=== PATIENT | male | born 1945 | race Caucasian/White ===

== ENCOUNTER → 2017-03-01 | Outpatient (CLI) | payer OTHER ==
[~2017-03-01] MED LIST: ASPCH81X PO; CITA10TA4 PO; DILT-119 PO; DVN/160 PO; FINA5TAB PO; PRAV80TA2 PO; TERA5CAP PO
[2017-03-01 17:39] LABS: BASO % 0.4 %; BASO ABS # 0.03 K/uL (0-0.2); COMPLETE YES; EOS % 1.9 %; HEMATOCRIT 43.6 % (42-52); IG% 0.2 %; LYMPH % 26.2 %; LYMPH ABS # 2.12 K/uL (1.2-3.4); MEAN CELL VOLUME 88.8 fL (80-100); MEAN CORPUSCULAR HEMOGLOBIN 30.5 pg (25-34); MEAN CORPUSCULAR HGB CONC 34.4 g/dl (32-36); MEAN PLATELET VOLUME 11.1 fL (7.4-10.4); MONO % 7.7 %; NEUT % 63.6 %; PLATELET COUNT 217 K/uL (130-400); RED BLOOD COUNT 4.91 M/uL (4.7-6.1)
[2017-03-01 18:27] LABS: ALT/SGPT 54 U/L (12-78); AST/SGOT 53 U/L (15-37); BLOOD UREA NITROGEN 23 mg/dl (7-18); BUN/CREATININE RATIO 16.2 (10-20); CALCIUM 8.5 mg/dl (8.5-10.1); CARBON DIOXIDE 28 mmol/L (21-32); CHLORIDE 108 mmol/L (98-107); CHOLESTEROL 145 mg/dl (0-200); GLUCOSE 73 mg/dl (70-99); POTASSIUM 3.8 mmol/L (3.5-5.1); SODIUM 143 mmol/L (136-145)
[2017-03-01 18:39] LABS: ALB/GLOB RATIO 1.4 (0.9-2); ALKALINE PHOSPHATASE 61 U/L (45-117); CHOLESTEROL/HDL RATIO 3.2; HDL CHOLESTEROL 45 mg/dl; LDL CHOLESTEROL CALCULATED 75 mg/dl; TRIGLYCERIDES 124 mg/dl (0-150); VERY LOW DENSITY LIPOPROT CALC 25 mg/dl
[2017-03-02 08:13] LABS: ESTIMATED AVERAGE GLUCOSE 114 mg/dl; HA1C FLAG Normal (Normal)
--- NOTE | 2017-03-17 10:42 | CODING QUERY MEDICAL NECESSITY ---
CQSUPPORTING DIAGNOSIS NEEDED A supporting diagnosis is required for the test/procedure performed on this patient in order for us to be reimbursed by the patient's insurance. Please provide a supporting diagnosis for the following test/procedure listed below next to the test name along with your signature. *If there is no additional diagnosis for this patient that would support the following test/procedure please document that below next to the test/procedure. Test(s)/Procedure(s) that require a supporting diagnosis: EL[place] 03/01/17 GLYCATED HEMOGLOBIN TEST Provider Signature: Date: Thank you Porsha Garcia Health Information Management Once completed, please kindly fax back to [phone] For questions please call [phone]
== END | disposition home or self-care (01) ==
LOC: C.LABBFT 12:16
PROVIDERS: ATTEND Internal Medicine
DX: Q25.3 Supravalvular aortic stenosis (principal); E78.5 Hyperlipidemia, unspecified; R73.03 Prediabetes; R97.20 Elevated prostate specific antigen [PSA]; R73.09 Other abnormal glucose

== ENCOUNTER 2018-01-28 07:34 | Inpatient (IN) | payer OTHER ==
[~2018-01-28] VITALS: Ht 172.7 cm; Wt 80.0 kg
[2018-01-28] MEDS ORDERED: SODIUM CHLORIDE 0.9% 1000ML 1,000 ML IV STA (07:59)
[2018-01-28] MEDS ORDERED: MoRPHine SULFATE 10 MG/ML CARP/VIAL IV STA (07:59)
[2018-01-28] MEDS ORDERED: ONDANSETRON INJ 2 MG/ML 2 ML VIAL IV STA ×2 (07:59→08:57)
--- NOTE | 2018-01-28 08:04 | EMERGENCY ROOM VISIT NOTE ---
History First contact with patient: 07:50 Chief Complaint: FLANK PAIN Stated Complaint: SEVERE L LOWER BACK PAIN,NAUSEA History of Present Illness The patient is a 72 year old male who presents to the Emergency Room with complaints of a suspected kidney stone. The patient reports that approximately 4 hours ago, he had sudden onset of left flank pain with radiation into the abdomen. He states the pain is sharp and he rates the discomfort a 7/10. He reports associated nausea but has not vomited. He has urinary urgency and a feeling of incomplete emptying. Patient has required lithotripsy and stone removal in the past, but has not had a kidney stone in several years. He does not have a local urologist. He denies chest pain, shortness of breath or changes in bowel movements. Review of Systems A complete 10 point review of systems was reviewed with the patient with pertinent positives and negatives as per history of present illness. All else were negative. Past Medical/Surgical History Medical Problems: (1) Hypertension (2) Urinary tract infection Social History Smoking Status: Never Smoker Alcohol Use: none Marital Status: Housing Status: lives alone Current/Historical Medications Scheduled Aspirin (Aspirin Chewable), 81 MG PO QAM Citalopram Hydrobromide (Citalopram Hydrobromide), 1 TAB PO QPM Diltiazem Hcl Ext Rel (Tiazac), 360 MG PO QAM Finasteride (Proscar), 5 MG PO HS Pravastatin Sodium (Pravastatin Sodium), 1 TAB PO HS Terazosin (Hytrin), 5 MG PO QAM Valsartan/Hctz (Diovan Hct 160MG/12.5MG), 1 TAB PO DAILY Physical Exam Vital Signs Date Time Temp Pulse Resp B/P (MAP) Pulse Ox O2 Delivery O2 Flow Rate FiO2 01/28/18 09:41 54 20 130/76 96 01/28/18 08:17 68 20 163/85 97 Room Air 01/28/18 08:06 72 20 187/87 95 Room Air 01/28/18 07:40 36.4 63 18 103/69 99 Room Air Physical Exam VITALS: Vitals are noted on the nurse's note and reviewed by myself. Vital signs stable. GENERAL: This is a 72-year-old male, in no acute distress, nondiaphoretic, well- developed well-nourished. SKIN: The skin was without rashes. EARS: External auditory canals clear, tympanic membranes pearly avendano without erythema or effusion bilaterally. EYES: Pupils equal round and reactive to light and accommodation. MOUTH: Mucous membranes moist. . HEART: Regular rate and rhythm without murmurs gallops or rubs. LUNGS: Clear to auscultation bilaterally without wheezes, rales or rhonchi. ABDOMEN: Positive bowel sounds x 4. Soft, mild tenderness in the left lower quadrant. No guarding or rebound tenderness. MUSCULOSKELETAL: Left CVA tenderness. NEURO: Patient was alert and oriented to person place and time. Medical Decision & Procedures ER Provider Diagnostic Interpretation: CT SCAN OF THE ABDOMEN AND PELVIS WITHOUT IV CONTRAST FINDINGS: Lung bases: The heart is enlarged and without pericardial effusion. There are coronary artery calcifications. A small hiatal hernia is noted. The lung bases are clear. Liver: The unenhanced liver is normal in size, contour, and attenuation. There is no intrahepatic biliary ductal dilatation. Gallbladder: Small calcified gallstones are identified. There is no CT evidence of acute cholecystitis. Spleen: Normal in size and attenuation. Pancreas: The unenhanced pancreas is mildly atrophic and grossly unremarkable. Adrenal glands: Unremarkable. Kidneys: The unenhanced kidneys demonstrate cortical atrophy. There is a 5 mm obstructing calculus at the left vesicoureteral junction seen on image #363. This causes moderate left hydroureteronephrosis. There is associated left-sided perinephric stranding. There are 2 additional nonobstructing left renal calculi measuring up to 6 mm. A 2 mm nonobstructing right renal calculus is identified. No right-sided hydronephrosis is seen. A 12.5 cm cyst arises exophytically from the lower pole of the right kidney. Thin calcifications are noted in the cyst wall. Abdominal vasculature: The abdominal aorta is normal in course and caliber noting mild atherosclerotic calcification. Bowel: There is moderate colonic diverticulosis without CT evidence of acute diverticulitis. No bowel obstruction is seen. The appendix is well-visualized and normal. Peritoneum: There is no intraperitoneal free air or abdominal ascites. Lymphadenopathy: None. Pelvic viscera: The prostate gland is enlarged and heterogeneous, measuring 5.0 cm in transverse diameter. There is median lobe hypertrophy. There is circumferential bladder wall thickening and trabeculation consistent with chronic outlet obstruction. Small bladder diverticula are identified. There is trace free fluid in the pelvis. Skeletal structures: The skeletal structures are osteopenic. There is mild lumbosacral spondylosis. No lytic or blastic lesions are seen. IMPRESSION: 1. There is a 5 mm obstructing calculus at the left vesicoureteral junction. This causes moderate left hydroureteronephrosis. 2. Additional bilateral nonobstructing renal calculi as above. 3. Moderate colonic diverticulosis without CT evidence of acute diverticulitis. 4. Cardiomegaly and small hiatal hernia. 5. A 12.5 cm cyst arises from the lower pole of the right kidney. 6. Prostatomegaly with evidence of chronic bladder outlet obstruction. 7. Trace free fluid in the pelvis is likely on a reactive basis. 8. Additional findings as above. Laboratory Results 01/28/18 07:55 Red Blood Count 5.22, Mean Corpuscular Volume 89.1, Mean Corpuscular Hemoglobin 31.8, Mean Corpuscular Hemoglobin Concent 35.7, Mean Platelet Volume 10.2, Neutrophils (%) (Auto) 66.9, Lymphocytes (%) (Auto) 24.7, Monocytes (%) (Auto) 6.4, Eosinophils (%) (Auto) 1.5, Basophils (%) (Auto) 0.3, Neutrophils # (Auto) 6.54, Lymphocytes # (Auto) 2.42, Monocytes # (Auto) 0.63, Eosinophils # (Auto) 0.15, Basophils # (Auto) 0.03 01/28/18 07:55 Test 01/28/18 07:55 White Blood Count 9.79 K/uL (4.8-10.8) Red Blood Count 5.22 M/uL (4.7-6.1) Hemoglobin 16.6 g/dL (14.0-18.0) Hematocrit 46.5 % (42-52) Mean Corpuscular Volume 89.1 fL (80-100) Mean Corpuscular Hemoglobin 31.8 pg (25-34) Mean Corpuscular Hemoglobin Concent 35.7 g/dl (32-36) Platelet Count 246 K/uL (130-400) Mean Platelet Volume 10.2 fL (7.4-10.4) Neutrophils (%) (Auto) 66.9 % Lymphocytes (%) (Auto) 24.7 % Monocytes (%) (Auto) 6.4 % Eosinophils (%) (Auto) 1.5 % Basophils (%) (Auto) 0.3 % Neutrophils # (Auto) 6.54 K/uL (1.4-6.5) Lymphocytes # (Auto) 2.42 K/uL (1.2-3.4) Monocytes # (Auto) 0.63 K/uL (0.11-0.59) Eosinophils # (Auto) 0.15 K/uL (0-0.5) Basophils # (Auto) 0.03 K/uL (0-0.2) RDW Standard Deviation 44.0 fL (36.4-46.3) RDW Coefficient of Variation 13.5 % (11.5-14.5) Immature Granulocyte % (Auto) 0.2 % Immature Granulocyte # (Auto) 0.02 K/uL (0.00-0.02) Prothrombin Time 10.6 SECONDS (9.0-12.0) Prothromb Time International Ratio 1.0 (0.9-1.1) Activated Partial Thromboplast Time 24.0 SECONDS (21.0-31.0) Partial Thromboplastin Ratio 0.9 Urine Color YELLOW Urine Appearance CLOUDY (CLEAR) Urine pH 5.0 (4.5-7.5) Urine Specific [place] 1.019 (1.000-1.030) Urine Protein NEG (NEG) Urine Glucose (UA) NEG (NEG) Urine Ketones NEG (NEG) Urine Occult Blood 2+ (NEG) Urine Nitrite POS (NEG) Urine Bilirubin NEG (NEG) Urine Urobilinogen NEG (NEG) Urine Leukocyte Esterase MODERATE (NEG) Urine WBC (Auto) >30 /hpf (0-5) Urine RBC (Auto) 10-30 /hpf (0-4) Urine Hyaline Casts (Auto) 5-10 /lpf (0-5) Urine Epithelial Cells (Auto) 0-5 /lpf (0-5) Urine Bacteria (Auto) 2+ (NEG) Anion Gap 5.0 mmol/L (3-11) Est Creatinine Clear Calc Drug Dose 39.7 ml/min Estimated GFR () 47.7 Estimated GFR (Non- 41.1 BUN/Creatinine Ratio 11.0 (10-20) Calcium Level 8.9 mg/dl (8.5-10.1) Total Bilirubin 0.4 mg/dl (0.2-1) Aspartate Amino Transf (AST/SGOT) 27 U/L (15-37) Alanine Aminotransferase (ALT/SGPT) 32 U/L (12-78) Alkaline Phosphatase 70 U/L (45-117) Total Protein 7.7 gm/dl (6.4-8.2) Albumin 4.4 gm/dl (3.4-5.0) Globulin 3.3 gm/dl (2.5-4.0) Albumin/Globulin Ratio 1.3 (0.9-2) Medications Administered Medications (Trade) Dose Ordered Sig/Chani Route Start Time Stop Time Status Last Admin Dose Admin Morphine Sulfate (MoRPHine SULFATE INJ) 8 mg NOW STAT IV 01/28/18 07:59 01/28/18 08:00 DC 01/28/18 08:07 8 MG Ondansetron HCl (Zofran Inj) 4 mg NOW STAT IV 01/28/18 07:59 01/28/18 08:00 DC 01/28/18 08:04 4 MG Sodium Chloride 1,000 ml @ 999 mls/hr Q1H1M STAT IV 01/28/18 07:59 01/28/18 08:59 DC 01/28/18 07:59 999 MLS/HR Ondansetron HCl (Zofran Inj) 4 mg NOW STAT IV 01/28/18 08:57 01/28/18 08:58 DC 01/28/18 09:42 4 MG Ceftriaxone Sodium (Rocephin Inj) 1 gm NOW STAT IV 01/28/18 09:10 01/28/18 09:11 DC 01/28/18 09:43 1 GM Sodium Chloride 1,000 ml @ 100 mls/hr Q10H IV 01/28/18 10:45 01/29/18 16:44 01/28/18 12:31 100 MLS/HR ED Course The patient was evaluated as above. Labs were drawn and IV access was obtained. Patient was medicated with 8 mg morphine IV, 4 mg Zofran IV and 1 L normal saline solution. CT of the abdomen/pelvis was performed and read by radiology as above. Patient was reevaluated and findings were discussed. He is agreeable to admission. Patient's case was discussed with Dr. Loving. He does not feel the patient will require any urgent intervention. Case was discussed with the [facility] hospitalist, Dr. Urias. They agreed to evaluate the patient for admission. Medical Decision Differential diagnosis includes kidney stone, herpes zoster, diverticulitis, musculoskeletal pain, among others. The patient is a 72-year-old male who presents today complaining of left flank pain. Labs revealed no leukocytosis or anemia. Creatinine slightly elevated from patient's baseline. CT does show a 5 mm stone in the left UVJ. Urinalysis was suggestive of infection, with positive nitrites, leukocyte esterase, greater than 30 white cells and 2+ bacteria. Culture was obtained. Patient was given Rocephin. Due to patient's coexisting UTI and kidney stone, I do feel he warrants admission for IV antibiotics and to ensure that symptoms do not worsen. Patient was agreeable to this. He was admitted to the [facility] service. The patient was independently evaluated by Dr. Coleman, ED attending physician, who agreed with my assessment and treatment plan. Medication Reconcilliation Current Medication List: was personally reviewed by me Blood Pressure Screening Patient's blood pressure: Normal blood pressure Impression Primary Impression: Kidney stone Additional Impression: Urinary tract infection Departure Information Referrals Ryne Block M.D. (PCP) Patient Instructions My [facility] Problem Qualifiers
[2018-01-28 08:27] LABS: BASO % 0.3 %; BASO ABS # 0.03 K/uL (0-0.2); EOS % 1.5 %; EOS ABS # 0.15 K/uL (0-0.5); HEMATOCRIT 46.5 % (42-52); HEMOGLOBIN 16.6 g/dL (14.0-18.0); IG# 0.02 K/uL (0.00-0.02); LYMPH % 24.7 %; LYMPH ABS # 2.42 K/uL (1.2-3.4); MEAN CELL VOLUME 89.1 fL (80-100); MEAN CORPUSCULAR HEMOGLOBIN 31.8 pg (25-34); MEAN CORPUSCULAR HGB CONC 35.7 g/dl (32-36); MEAN PLATELET VOLUME 10.2 fL (7.4-10.4); MONO % 6.4 %; MONO ABS # 0.63 K/uL (0.11-0.59); NEUT % 66.9 %; NEUT ABS # 6.54 K/uL (1.4-6.5); PLATELET COUNT 246 K/uL (130-400); RED CELL DISTRIBUTION WIDTH CV 13.5 % (11.5-14.5); WHITE BLOOD COUNT 9.79 K/uL (4.8-10.8)
[2018-01-28 08:44] LABS: ALBUMIN 4.4 gm/dl (3.4-5.0); CALCIUM 8.9 mg/dl (8.5-10.1); CREATININE 1.65 mg/dl (0.60-1.40); POTASSIUM 3.8 mmol/L (3.5-5.1)
[2018-01-28 08:46] LABS: TOTAL PROTEIN 7.7 gm/dl (6.4-8.2)
[2018-01-28] MEDS ORDERED: VALS160T58 PO (08:49)
--- NOTE | 2018-01-28 09:07 | DIAGNOSTIC IMAGING REPORT ---
CT SCAN OF THE ABDOMEN AND PELVIS WITHOUT IV CONTRAST CLINICAL HISTORY: Left flank pain. COMPARISON STUDY: No priors. TECHNIQUE: CT scan of the abdomen and pelvis is performed from the lung bases to the proximal femora. Images are reviewed in the axial, sagittal, and coronal planes. IV contrast was not administered for this examination as per the referring clinician. A dose lowering technique was utilized adhering to the principles of ALARA. CT DOSE: 1002.76 mGy.cm FINDINGS: Lung bases: The heart is enlarged and without pericardial effusion. There are coronary artery calcifications. A small hiatal hernia is noted. The lung bases are clear. Liver: The unenhanced liver is normal in size, contour, and attenuation. There is no intrahepatic biliary ductal dilatation. Gallbladder: Small calcified gallstones are identified. There is no CT evidence of acute cholecystitis. Spleen: Normal in size and attenuation. Pancreas: The unenhanced pancreas is mildly atrophic and grossly unremarkable. Adrenal glands: Unremarkable. Kidneys: The unenhanced kidneys demonstrate cortical atrophy. There is a 5 mm obstructing calculus at the left vesicoureteral junction seen on image #363. This causes moderate left hydroureteronephrosis. There is associated left-sided perinephric stranding. There are 2 additional nonobstructing left renal calculi measuring up to 6 mm. A 2 mm nonobstructing right renal calculus is identified. No right-sided hydronephrosis is seen. A 12.5 cm cyst arises exophytically from the lower pole of the right kidney. Thin calcifications are noted in the cyst wall. Abdominal vasculature: The abdominal aorta is normal in course and caliber noting mild atherosclerotic calcification. Bowel: There is moderate colonic diverticulosis without CT evidence of acute diverticulitis. No bowel obstruction is seen. The appendix is well-visualized and normal. Peritoneum: There is no intraperitoneal free air or abdominal ascites. Lymphadenopathy: None. Pelvic viscera: The prostate gland is enlarged and heterogeneous, measuring 5.0 cm in transverse diameter. There is median lobe hypertrophy. There is circumferential bladder wall thickening and trabeculation consistent with chronic outlet obstruction. Small bladder diverticula are identified. There is trace free fluid in the pelvis. Skeletal structures: The skeletal structures are osteopenic. There is mild lumbosacral spondylosis. No lytic or blastic lesions are seen. IMPRESSION: 1. There is a 5 mm obstructing calculus at the left vesicoureteral junction. This causes moderate left hydroureteronephrosis. 2. Additional bilateral nonobstructing renal calculi as above. 3. Moderate colonic diverticulosis without CT evidence of acute diverticulitis. 4. Cardiomegaly and small hiatal hernia. 5. A 12.5 cm cyst arises from the lower pole of the right kidney. 6. Prostatomegaly with evidence of chronic bladder outlet obstruction. 7. Trace free fluid in the pelvis is likely on a reactive basis. 8. Additional findings as above. Electronically signed by: Vargas Frances M.D. 01/28/2018 9:06 AM Dictated Date/Time: 01/28/2018 8:58 AM
[2018-01-28] MEDS ORDERED: CEFTRIAXONE SOD INJ 1 GM ADDVIAL IV STA (09:10)
[2018-01-28] MEDS ORDERED: ONDANSETRON INJ 2 MG/ML 2 ML VIAL IV PRN (10:45)
[2018-01-28] MEDS ORDERED: ACETAMINOPHEN 325 MG TAB PO PRN (10:45)
[2018-01-28 11:00] VITALS: O2SAT 97; Ht 172.7 cm; Wt 80.0 kg
--- NOTE | 2018-01-28 11:07 | History and Physical ---
History & Physical Date & Time of Service: Jan 28, 2018 at 10:58 Chief Complaint: Severe L Lower Back Pain,Nausea Primary Care Physician: Ryne Block M.D. History of Present Illness Source: patient Mr. Haim Cannon is a 72-year-old gentleman who presents to [facility] for further evaluation. Patient has a significant history of nephrolithiasis requiring multiple cystoscopies, lithotripsies and even required stent placements. Past medical history also includes history of hypertension and hyperlipidemia. Mr. Cannon was in his usual state of health until 03:00 when he developed left flank pain of gradual onset. Initially he felt a pressure sensation but eventually progressed to a sharp sensation with a 10 out of 10 severity. Pain now radiates along the left groin. Associated symptoms include intermittent nausea and vomiting. In the emergency department patient was started on intravenous hydration with normal saline and was given intravenous morphine which has helped with pain control. He remains afebrile and hemodynamically stable. Urinalysis findings are indicative of infectious process. One dose of ceftriaxone was given emergency department. No other symptoms and patient denies fevers, chills. No chest pain or shortness of breath. Otherwise rest of ROS is negative. Past Medical/Surgical History Medical Problems: (1) Hypertension (2) Urinary tract infection Family History noncontributory Social History Smoking Status: Never Smoker Marital Status: Allergies Coded Allergies: Amlodipine (Verified Allergy, Unknown, FACIAL DISCOMFORT/SWELLING, 01/28/18 ) Atorvastatin (Verified Allergy, Unknown, MUSCLE TIGHTENING, 01/28/18) Home Medications Scheduled Aspirin (Aspirin Chewable), 81 MG PO QAM Citalopram Hydrobromide (Citalopram Hydrobromide), 1 TAB PO QPM Diltiazem Hcl Ext Rel (Tiazac), 360 MG PO QAM Finasteride (Proscar), 5 MG PO HS Pravastatin Sodium (Pravastatin Sodium), 1 TAB PO HS Terazosin (Hytrin), 5 MG PO QAM Valsartan/Hctz (Diovan Hct 160MG/12.5MG), 1 TAB PO DAILY Review of Systems Constitutional: No fever, No chills, No sweats, No weight loss, No weakness, No fatigue, No problem reported Eyes: No worsening of vision, No eye pain, No redness, No discharge, No diplopia, No problem reported ENT: No hearing loss, No unusual epistaxis, No nasal symptoms, No sore throat, No tinnitus, No dental problems, No trouble swallowing, No problem reported Respiratory: No cough, No sputum, No wheezing, No shortness of breath, No dyspnea on exertion, No dyspnea at rest, No hemoptysis, No problem reported Cardiovascular: No chest pain, No orthopnea, No PND, No edema, No claudication , No palpitations, No problem reported Abdomen: + pain (left flank pain), + nausea, + vomiting Genitourinary - Male: + dysuria, + urinary urgency, No hematuria, No urinary frequency, No urinary hesitancy, No urinary retention, No urinary incontinence, No penile discharge, No lesions, No impotence, No problem reported Neurologic: No memory loss, No paralysis, No weakness, No numbness/tingling, No vertigo, No balance problems, No problem reported Psychiatric: No depression symptoms, No anhedonism, No anxiety, No insomnia, No substance abuse, No problem reported Endocrine: No fatigue, No excessive thirst, No excessive urination, No problem reported Hematologic / Lymphatic: No abnormal bleeding/bruising, No clotting problems, No swollen lymph nodes, No night sweats, No problem reported Integumentary: No rash, No itch, No new/changing skin lesions, No color change , No bleeding, No problem reported Physical Exam Vital Signs Date Time Temp Pulse Resp B/P (MAP) Pulse Ox O2 Delivery O2 Flow Rate FiO2 01/28/18 09:41 54 20 130/76 96 01/28/18 08:17 68 20 163/85 97 Room Air 01/28/18 08:06 72 20 187/87 95 Room Air 01/28/18 07:40 36.4 63 18 103/69 99 Room Air General Appearance: WD/WN, no apparent distress Head: normocephalic, atraumatic Eyes: normal inspection, PERRL, EOMI ENT: normal ENT inspection Neck: supple, no adenopathy, no JVD, trachea midline Respiratory/Chest: chest non-tender, lungs clear, normal breath sounds, no respiratory distress, no accessory muscle use Cardiovascular: regular rate, rhythm, no edema, no gallop, no JVD, no murmur, normal peripheral pulses Abdomen/GI: normal bowel sounds, + tenderness (mild tenderness to palpatin atLLQ and suprapubic region) Back: + left CVA tenderness Extremities/Musculoskelatal: normal inspection, no calf tenderness, no pedal edema, normal range of motion Neurologic/Psych: shirt ironer II-XII nml as tested, oriented x 3 Diagnostics Laboratory Results Results Past 24 Hours Test 01/28/18 07:55 Range/Units White Blood Count 9.79 4.8-10.8 K/uL Red Blood Count 5.22 4.7-6.1 M/uL Hemoglobin 16.6 14.0-18.0 g/dL Hematocrit 46.5 42-52 % Mean Corpuscular Volume 89.1 80-100 fL Mean Corpuscular Hemoglobin 31.8 25-34 pg Mean Corpuscular Hemoglobin Concent 35.7 32-36 g/dl Platelet Count 246 130-400 K/uL Mean Platelet Volume 10.2 7.4-10.4 fL Neutrophils (%) (Auto) 66.9 % Lymphocytes (%) (Auto) 24.7 % Monocytes (%) (Auto) 6.4 % Eosinophils (%) (Auto) 1.5 % Basophils (%) (Auto) 0.3 % Neutrophils # (Auto) 6.54 1.4-6.5 K/uL Lymphocytes # (Auto) 2.42 1.2-3.4 K/uL Monocytes # (Auto) 0.63 0.11-0.59 K/uL Eosinophils # (Auto) 0.15 0-0.5 K/uL Basophils # (Auto) 0.03 0-0.2 K/uL RDW Standard Deviation 44.0 36.4-46.3 fL RDW Coefficient of Variation 13.5 11.5-14.5 % Immature Granulocyte % (Auto) 0.2 % Immature Granulocyte # (Auto) 0.02 0.00-0.02 K/uL Urine Color YELLOW Urine Appearance CLOUDY CLEAR Urine pH 5.0 4.5-7.5 Urine Specific [place] 1.019 1.000-1.030 Urine Protein NEG NEG Urine Glucose (UA) NEG NEG Urine Ketones NEG NEG Urine Occult Blood 2+ NEG Urine Nitrite POS NEG Urine Bilirubin NEG NEG Urine Urobilinogen NEG NEG Urine Leukocyte Esterase MODERATE NEG Urine WBC (Auto) >30 0-5 /hpf Urine RBC (Auto) 10-30 0-4 /hpf Urine Hyaline Casts (Auto) 5-10 0-5 /lpf Urine Epithelial Cells (Auto) 0-5 0-5 /lpf Urine Bacteria (Auto) 2+ NEG Sodium Level 141 136-145 mmol/L Potassium Level 3.8 3.5-5.1 mmol/L Chloride Level 106 98-107 mmol/L Carbon Dioxide Level 30 21-32 mmol/L Anion Gap 5.0 3-11 mmol/L Blood Urea Nitrogen 18 7-18 mg/dl Creatinine 1.65 0.60-1.40 mg/dl Est Creatinine Clear Calc Drug Dose 39.7 ml/min Estimated GFR () 47.7 Estimated GFR (Non- 41.1 BUN/Creatinine Ratio 11.0 10-20 Random Glucose 137 70-99 mg/dl Calcium Level 8.9 8.5-10.1 mg/dl Total Bilirubin 0.4 0.2-1 mg/dl Aspartate Amino Transf (AST/SGOT) 27 15-37 U/L Alanine Aminotransferase (ALT/SGPT) 32 12-78 U/L Alkaline Phosphatase 70 45-117 U/L Total Protein 7.7 6.4-8.2 gm/dl Albumin 4.4 3.4-5.0 gm/dl Globulin 3.3 2.5-4.0 gm/dl Albumin/Globulin Ratio 1.3 0.9-2 Microbiology Results 01/28/18 Urine Culture, Received Pending Diagnostic Radiology CT A/P w.o contrast IMPRESSION 1. There is a 5 mm obstructing calculus at the left vesicoureteral junction. This causes moderate left hydroureteronephrosis. 2. Additional bilateral nonobstructing renal calculi as above. 3. Moderate colonic diverticulosis without CT evidence of acute diverticulitis. 4. Cardiomegaly and small hiatal hernia. 5. A 12.5 cm cyst arises from the lower pole of the right kidney. 6. Prostatomegaly with evidence of chronic bladder outlet obstruction. 7. Trace free fluid in the pelvis is likely on a reactive basis. Impression Assessment and Plan R.T.P 72/M admitted for complicated urinary tract infection. Patient has a known history of Nephrolithiasis requiring urologic interventions. In the past he has needed multiple cystoscopies, lithotripsy and stent placement. Urine analysis obtained emergency department is suggestive of infection. There is evidence of occult blood, nitrates, moderate leukoesterase and bacteria. He is currently on intravenous antibiotics and will continue on ceftriaxone 1 g daily. Urology service will be consulted and will appreciate any further recommendations. In the meantime pain is well controlled with intravenous morphine. Afebrile hemodynamically stable. 1) Urinary Tract Infection, complicated - intravenous hydration: NS 100cc/hr for 3 liters - intravenous Abx: ceftriaxone 1gm IV q24H - resume finasteride and terazosin - UCx obtained in ED; will f/u with results and S/S - Urology consultation; will appreciate recommendations - intravenous morphine for pain management - ondasetron PRN for nausea - acetaminophen 650mg PO q6H PRN for temperature 100.4 F or greater 2) Hypertension - controlled - resume valsartan/HCTZ and diltiazem 3) Hyperlipidemia - stable, no active issues - resume pravastatin Admit: Med/Surg Diet: Heart Healthy Activity: ad stefan DVT ppx: SQ heparin NM/Stroke ppx: ASA Precautions: Standard Code Status: FULL Resuscitation Status VTE Prophylaxis Will order VTE Prophylaxis: Yes
[2018-01-28] MEDS ORDERED: MoRPHine SULFATE 4 MG/ML 1 ML CARP\\VIAL IV PRN (11:30)
[2018-01-28] MEDS ORDERED: MoRPHine SULFATE 2 MG/ML CARP IV PRN ×2 (11:30)
[2018-01-28 11:58] VITALS: BP 132/67; PULSE 53; TEMP 36.9; O2SAT 97
--- NOTE | 2018-01-28 12:17 | EMERGENCY ROOM VISIT NOTE ---
ED Visit Note First contact with patient: 07:50 I have personally evaluated this patient examined her and reviewed the pertinent labs and data. I have discussed the case with Viviane Kruger, the physician preschool teacher's assistant and agree with the plan. Please refer to the PA note. This patient has a kidney stone. He has significant pain that's feeling better with morphine. He is afebrile has a normal white count however is urinalysis does suggest infection. We have consulted Dr. Loving. the patient will be admitted to the hospitalist service he was given IV antibiotics. I exam he appears very comfortable after receiving the morphine.
[2018-01-28] MEDS: SODIUM CHLORIDE 0.9% 1000ML 1,000 ML IV SCH ×2 (12:31→22:26)
[2018-01-28] MEDS: HEPARIN SOD 5000 UNIT/0.5 ML CARP SQ SCH ×2 (13:33→21:52)
[2018-01-28 15:09] VITALS: BP 111/63; PULSE 52; TEMP 36.3; O2SAT 97
[2018-01-28 16:30] VITALS: O2SAT 97
[2018-01-28] MEDS ORDERED: FINASTERIDE 5 MG TAB PO SCH (21:00)
[2018-01-28] MEDS ORDERED: PRAVASTATIN SOD 40 MG TAB PO SCH (21:00)
[2018-01-28] MEDS ORDERED: CITALOPRAM 20 MG TAB PO SCH (21:00)
[2018-01-29] VITALS: BP 137/64; PULSE 57; TEMP 36.9; O2SAT 97
[2018-01-29] MEDS: HEPARIN SOD 5000 UNIT/0.5 ML CARP SQ SCH ×2 (05:12→13:16)
[2018-01-29 08:05] VITALS: BP 144/69; PULSE 49; TEMP 37.2; O2SAT 96
[2018-01-29] MEDS: SODIUM CHLORIDE 0.9% 1000ML 1,000 ML IV SCH (08:32)
[2018-01-29] MEDS ORDERED: HYDROCHLOROTHIAZIDE 25 MG TAB PO SCH (09:00)
[2018-01-29] MEDS ORDERED: VALSARTAN/HCTZ 160/12.5 MG TAB PO SCH (09:00)
[2018-01-29] MEDS ORDERED: DILTIAZEM HCL (TIAzac) 180 MG CAPCR PO SCH (09:00)
[2018-01-29] MEDS ORDERED: ASPIRIN 81 MG ECTAB PO SCH (09:00)
[2018-01-29] MEDS ORDERED: VALSARTAN 80 MG TAB PO SCH (09:00)
[2018-01-29] MEDS ORDERED: CEFTRIAXONE SOD INJ 1 GM in DEXTROSE 5% ADD-VANTAGE 50ML 50 ML IV SCH (10:00)
--- NOTE | 2018-01-29 12:11 | Urology Consultation ---
History General Date of Service: Jan 29, 2018. Primary Care Physician: Ryne Block M.D. History of Present Illness Patient is a 72-year-old white male admitted to the emergency room with left flank pain. He has a long-standing history of nephrolithiasis. The flank pain initially was more pressure but then became rather severe. He denies any fevers or chills. He did have some nausea and vomiting though. He denies any voiding problems. He denies any dysuria or gross hematuria. Currently he is having no pain. He has not passed the stone yet as far as he is aware. Laboratory Last Vital Signs Documentation Date Time Temp Pulse Resp B/P (MAP) Pulse Ox O2 Delivery O2 Flow Rate FiO2 01/29/18 08:05 37.2 49 20 144/69 (94) 96 01/29/18 08:00 Room Air Problem List Medical Problems: (1) Kidney stone Status: Acute Social History Marital status: History of MDRO No Allergies Coded Allergies: Amlodipine (Verified Allergy, Unknown, FACIAL DISCOMFORT/SWELLING, 01/28/18 ) Atorvastatin (Verified Allergy, Unknown, MUSCLE TIGHTENING, 01/28/18) Medications Home Medications: Home Meds and Scripts Medications Dose Route/Sig Max Daily Dose Days Date Category Diovan Hct 160MG/12.5MG (HCTZ/Valsartan) 1 Tab Tab 1 Tab PO DAILY 01/28/18 Reported Aspirin Chewable (Aspirin) 81 Mg Chew 81 Mg PO QAM 09/28/16 Reported Pravastatin Sodium 80 Mg Tab 1 Tab PO HS 09/28/16 Reported Tiazac (Diltiazem HCl) 360 Mg Capcr 360 Mg PO QAM 09/28/16 Reported Hytrin (Terazosin HCl) 5 Mg Cap 5 Mg PO QAM 09/28/16 Reported Proscar (Finasteride) 5 Mg Tab 5 Mg PO HS 09/28/16 Reported Citalopram Hydrobromide 10 Mg Tab 1 Tab PO QPM 09/28/16 Reported Inpatient Medications: Current Inpatient Medications Medications (Trade) Dose Ordered Sig/Chani Route Start Time Stop Time Status Last Admin Dose Admin Heparin Sodium (Porcine) (Heparin Sq 5000 Unit/0.5ml) 5,000 unit Q8 SQ 01/28/18 14:00 02/27/18 13:59 01/28/18 21:52 5,000 UNIT Acetaminophen (Tylenol Tab) 650 mg Q4H PRN PO 01/28/18 10:45 02/27/18 10:44 Ondansetron HCl (Zofran Inj) 4 mg Q6H PRN IV 01/28/18 10:45 02/27/18 10:44 Sodium Chloride 1,000 ml @ 100 mls/hr Q10H IV 01/28/18 10:45 01/29/18 16:44 01/29/18 08:32 100 MLS/HR Ceftriaxone Sodium 1 gm/ Dextrose 50 ml @ 100 mls/hr Q24H IV 01/29/18 10:00 02/06/18 10:29 01/29/18 10:02 100 MLS/HR Morphine Sulfate (MoRPHine SULFATE INJ) 1 mg Q3H PRN IV 01/28/18 11:30 02/11/18 11:29 Morphine Sulfate (MoRPHine SULFATE INJ) 2 mg Q3H PRN IV 01/28/18 11:30 02/11/18 11:29 Morphine Sulfate (MoRPHine SULFATE INJ) 3 mg Q3H PRN IV 01/28/18 11:30 02/11/18 11:29 Aspirin (Ecotrin Tab) 81 mg QAM PO 01/29/18 09:00 02/28/18 08:59 01/29/18 08:32 81 MG Diltiazem HCl (TIAzac CAP) 360 mg QAM PO 01/29/18 09:00 02/28/18 08:59 01/29/18 08:33 360 MG Finasteride (Proscar Tab) 5 mg HS PO 01/28/18 21:00 02/27/18 20:59 01/28/18 21:11 5 MG Terazosin HCl (Hytrin Cap) 5 mg QAM PO 01/29/18 09:00 02/28/18 08:59 01/29/18 08:34 5 MG Citalopram Hydrobromide (celeXA TAB) 10 mg QPM PO 01/28/18 21:00 02/27/18 20:59 01/28/18 21:10 10 MG Pravastatin Sodium (Pravachol Tab) 80 mg HS PO 01/28/18 21:00 02/27/18 20:59 01/28/18 21:10 80 MG Valsartan (Diovan Tab) 160 mg DAILY PO 01/29/18 09:00 02/28/18 08:59 01/29/18 08:33 160 MG Hydrochlorothiazide (Hydrochlorothiazide Tab) 12.5 mg QAM PO 01/29/18 09:00 02/28/18 08:59 01/29/18 08:33 12.5 MG Review of Systems Review of Systems Additional Comments: View of systems reviewed from his admission history and physical and emergency room notes Physical Exam Vital Signs: Vital Signs Past 12 Hours Date Time Temp Pulse Resp B/P (MAP) Pulse Ox O2 Delivery O2 Flow Rate FiO2 01/29/18 08:05 37.2 49 20 144/69 (94) 96 01/29/18 08:00 Room Air Physical Exam: General Appearance: WD/WN, no apparent distress Eyes: bilateral eyes normal inspection ENT: hearing grossly normal Neck: no adenopathy Respiratory/Chest: no respiratory distress Cardiovascular: regular rate, rhythm Gastrointestinal: Abdomen: normal abdomen Assessment & Plan Assessment & Plan Assessment Left flank pain I reviewed his CT that he had he has a 4-5 mm stone which appears to be going to the intramural tunnel of the bladder on the CAT scan so it is almost out. I talked with him today about treatment options he would like to just see if he can pass this on his own. He is well aware of the other options as as he has had multiple treatments for stones as well as stents in the past. I did tell him that if he developed a fever or shaking chills he would need to have treatment emergently. His urine culture is growing out a staph the sensitivities are pending As long as he remains afebrile shows no signs of sepsis I think it is okay to let him try to pass the stone on his own since it is almost out Continue him on antibiotics pending the sensitivities on the urine culture with then switch him to an oral antibiotic that the organism is sensitive to
[2018-01-29] MEDS ORDERED: AMOX875T PO (13:25)
--- NOTE | 2018-01-29 13:26 | Discharge Instructions ---
Discharge Instructions Date of Service Jan 29, 2018. Admission Reason for Admission: Urinary Tract Infection Discharge Discharge Diagnosis / Problem: UTI/ Kidney stone Discharge Goals Goal(s): Decrease discomfort, Improve function Activity Recommendations Activity Limitations: resume your previous activity . Instructions / Follow-Up Instructions / Follow-Up follow up with PCP as outpatient in 1 week. Please return to hospital if you develop fever chills. Current Hospital Diet Patient's current hospital diet: AHA Diet (Heart Healthy) Discharge Diet Recommended Diet: AHA Diet (Heart Healthy) Pending Studies Studies pending at discharge: yes List of pending studies: Awaiting culture Medical Emergencies . Who to Call and When: Medical Emergencies: If at any time you feel your situation is an emergency, please call 911 immediately. . Non-Emergent Contact Non-Emergency issues call your: Hospital Doctor Call Non-Emergent contact if: you have a fever . . "Provider Documentation" section prepared by Alejandro Urias. .
[2018-01-29 14:01] VITALS: BP 144/69; PULSE 49; TEMP 37.2; O2SAT 96
--- NOTE | 2018-02-05 20:53 | Discharge Summary ---
Discharge Summary Date of Service Feb 05, 2018. Discharge Summary Admission Date: Jan 28, 2018 at 10:45 Discharge Date: Jan 29, 2018 Discharge Disposition: Home Principal Diagnosis: Left ureteral calculus Procedures: CT SCAN OF THE ABDOMEN AND PELVIS WITHOUT IV CONTRAST CLINICAL HISTORY: Left flank pain. COMPARISON STUDY: No priors. TECHNIQUE: CT scan of the abdomen and pelvis is performed from the lung bases to the proximal femora. Images are reviewed in the axial, sagittal, and coronal planes. IV contrast was not administered for this examination as per the referring clinician. A dose lowering technique was utilized adhering to the principles of ALARA. CT DOSE: 1002.76 mGy.cm FINDINGS: Lung bases: The heart is enlarged and without pericardial effusion. There are coronary artery calcifications. A small hiatal hernia is noted. The lung bases are clear. Liver: The unenhanced liver is normal in size, contour, and attenuation. There is no intrahepatic biliary ductal dilatation. Gallbladder: Small calcified gallstones are identified. There is no CT evidence of acute cholecystitis. Spleen: Normal in size and attenuation. Pancreas: The unenhanced pancreas is mildly atrophic and grossly unremarkable. Adrenal glands: Unremarkable. Kidneys: The unenhanced kidneys demonstrate cortical atrophy. There is a 5 mm obstructing calculus at the left vesicoureteral junction seen on image #[id number]. This causes moderate left hydroureteronephrosis. There is associated left-sided perinephric stranding. There are 2 additional nonobstructing left renal calculi measuring up to 6 mm. A 2 mm nonobstructing right renal calculus is identified. No right-sided hydronephrosis is seen. A 12.5 cm cyst arises exophytically from the lower pole of the right kidney. Thin calcifications are noted in the cyst wall. Abdominal vasculature: The abdominal aorta is normal in course and caliber noting mild atherosclerotic calcification. Bowel: There is moderate colonic diverticulosis without CT evidence of acute diverticulitis. No bowel obstruction is seen. The appendix is well-visualized and normal. Peritoneum: There is no intraperitoneal free air or abdominal ascites. Lymphadenopathy: None. Pelvic viscera: The prostate gland is enlarged and heterogeneous, measuring 5.0 cm in transverse diameter. There is median lobe hypertrophy. There is circumferential bladder wall thickening and trabeculation consistent with chronic outlet obstruction. Small bladder diverticula are identified. There is trace free fluid in the pelvis. Skeletal structures: The skeletal structures are osteopenic. There is mild lumbosacral spondylosis. No lytic or blastic lesions are seen. IMPRESSION: 1. There is a 5 mm obstructing calculus at the left vesicoureteral junction. This causes moderate left hydroureteronephrosis. 2. Additional bilateral nonobstructing renal calculi as above. 3. Moderate colonic diverticulosis without CT evidence of acute diverticulitis. 4. Cardiomegaly and small hiatal hernia. 5. A 12.5 cm cyst arises from the lower pole of the right kidney Medication Reconciliation New Medications: Amoxicillin & Pot Clavulanate (Augmentin 875-125 mg) 1 Tab Tab 875 MG PO BID for 10 Days, #20 TAB Continued Medications: Aspirin (Aspirin Chewable) 81 Mg Chew 81 MG PO QAM Citalopram Hydrobromide (Citalopram Hydrobromide) 10 Mg Tab 1 TAB PO QPM, TAB Diltiazem Hcl Ext Rel (Tiazac) 360 Mg Capcr 360 MG PO QAM, CAP Finasteride (Proscar) 5 Mg Tab 5 MG PO HS, TAB Pravastatin Sodium (Pravastatin Sodium) 80 Mg Tab 1 TAB PO HS, TAB Terazosin (Hytrin) 5 Mg Cap 5 MG PO QAM, CAP Valsartan/Hctz (Diovan Hct 160MG/12.5MG) 1 Tab Tab 1 TAB PO DAILY, TAB Discharge Exam Review of Systems: Constitutional: No fever Eyes: No worsening of vision ENT: No hearing loss Respiratory: No cough Cardiovascular: No chest pain Abdomen: No pain Musculoskeletal: No joint pain Genitourinary - Male: No hematuria Neurologic: No memory loss Psychiatric: No depression symptoms Endocrine: No fatigue Hematologic / Lymphatic: No abnormal bleeding/bruising Physical Exam: General Appearance: WD/WN, no apparent distress Eyes: normal inspection ENT: normal ENT inspection Neck: supple, no adenopathy Respiratory/Chest: chest non-tender Cardiovascular: regular rate, rhythm, no edema Extremities: normal inspection, no calf tenderness Neurologic/Psychiatric: alert, oriented x 3 Skin: normal color Lymphatic: no adenopathy Hospital Course R.T.P 72/M admitted for complicated urinary tract infection. Patient has a known history of Nephrolithiasis requiring urologic interventions. In the past he has needed multiple cystoscopies, lithotripsy and stent placement. Urine analysis obtained emergency department is suggestive of infection. There is evidence of occult blood, nitrates, moderate leukoesterase and bacteria. He is currently on intravenous antibiotics and will continue on ceftriaxone 1 g daily. Urology service will be consulted and will appreciate any further recommendations. In the meantime pain is well controlled with intravenous morphine. Afebrile hemodynamically stable. 1) Urinary Tract Infection, complicated with left ureteral calculus - intravenous hydration: NS 100cc/hr for 3 liters - intravenous Abx: ceftriaxone 1gm IV q24H - resume finasteride and terazosin - UCx obtained in ED; will f/u with results and S/S - Urology consultation; will appreciate recommendations -Ok to discharge. -Instructed to return if pain is severe - acetaminophen 650mg PO q6H PRN for temperature 100.4 F or greater -will discharge patient on augmentin. -culture was pansensitive staph. 2) Hypertension - controlled - resume valsartan/HCTZ and diltiazem 3) Hyperlipidemia - stable, no active issues - resume pravastatin Total Time Spent: Greater than 30 minutes This includes examination of the patient, discharge planning, medication reconciliation, and communication with other providers. Discharge Instructions Please refer to the electronic Patient Visit Report (Discharge Instructions) for additional information. Follow-Up As noted in discharge instructions Additional Copies To Ryne Block M.D.
== END 2018-01-29 14:27 | disposition home or self-care (01) | DRG 694 ==
LOC: C.EDB 07:36 → C.MS2W 10:45 → ENRESERV 10:54
PROVIDERS: ADMIT Internal Medicine; ATTEND Internal Medicine
DX: N13.2 Hydronephrosis with renal and ureteral calculous obstruction (principal); N39.0 Urinary tract infection, site not specified; I10 Essential (primary) hypertension; Z79.82 Long term (current) use of aspirin; Z88.8 Allergy status to other drugs, medicaments and biological substances

== ENCOUNTER → 2018-02-06 | Outpatient (CLI) | payer OTHER ==
[~2018-02-06] MED LIST changes: +AMOX875T PO; -DVN/160 PO; +VALS160T58 PO
--- NOTE | 2018-02-06 09:45 | DIAGNOSTIC IMAGING REPORT ---
KUB HISTORY: Follow-up study in a patient with nephrolithiasis N20.0 [id number] COMPARISON: CT 01/28/2018 FINDINGS: The bowel gas pattern is non-obstructive. There is no organomegaly. Unchanged 4 mm calculus of the interpolar left kidney with additional punctate calculus of the superior pole left kidney. Obscuration of the right renal shadow by large right renal cyst redemonstrated. Peripheral calcifications of the cysts are redemonstrated with previously described right-sided nephrolithiasis not well seen. No ureteral calculi identified. Phleboliths of the left hemipelvis. Previously noted calculus within the region of the distal left ureterovesicular junction is no longer identified. No pneumoperitoneum or pneumatosis. No fracture. IMPRESSION: 1. Unchanged appearance of left-sided nephrolithiasis without ureteral calculi identified. 2. Previously noted calculus within the region of the distal left ureterovesicular junction is not identified. 3. Peripheral calcifications in a large right renal cyst redemonstrated. Electronically signed by: Evans Murrieta M.D. 02/06/2018 9:44 AM Dictated Date/Time: 02/06/2018 9:40 AM
== END | disposition home or self-care (01) ==
LOC: C.RAD 09:16
PROVIDERS: ATTEND Urology
DX: N20.0 Calculus of kidney (principal); N28.1 Cyst of kidney, acquired

== ENCOUNTER → 2018-03-06 | Outpatient (CLI) | payer OTHER ==
[~2018-03-06] MED LIST changes: -AMOX875T PO
[2018-03-06 12:13] LABS: BASO % 0.5 %; BASO ABS # 0.03 K/uL (0-0.2); EOS % 1.9 %; EOS ABS # 0.12 K/uL (0-0.5); HEMATOCRIT 44.2 % (42-52); HEMOGLOBIN 15.2 g/dL (14.0-18.0); IG# 0.01 K/uL (0.00-0.02); LYMPH % 31.1 %; LYMPH ABS # 1.96 K/uL (1.2-3.4); MEAN CELL VOLUME 89.3 fL (80-100); MEAN CORPUSCULAR HEMOGLOBIN 30.7 pg (25-34); MEAN CORPUSCULAR HGB CONC 34.4 g/dl (32-36); MEAN PLATELET VOLUME 9.9 fL (7.4-10.4); MONO ABS # 0.38 K/uL (0.11-0.59); NEUT % 60.3 %; NEUT ABS # 3.81 K/uL (1.4-6.5); PLATELET COUNT 238 K/uL (130-400); RED CELL DISTRIBUTION WIDTH CV 13.5 % (11.5-14.5); RED CELL DISTRIBUTION WIDTH SD 43.9 fL (36.4-46.3); WHITE BLOOD COUNT 6.31 K/uL (4.8-10.8)
[2018-03-06 12:42] LABS: ALBUMIN 3.9 gm/dl (3.4-5.0); ALT/SGPT 33 U/L (12-78); AST/SGOT 29 U/L (15-37); BLOOD UREA NITROGEN 21 mg/dl (7-18); CALCIUM 8.4 mg/dl (8.5-10.1); CARBON DIOXIDE 27 mmol/L (21-32); CREATININE 1.34 mg/dl (0.60-1.40); GLUCOSE 92 mg/dl (70-99); POTASSIUM 4.3 mmol/L (3.5-5.1); SODIUM 141 mmol/L (136-145)
[2018-03-06 12:44] LABS: ALKALINE PHOSPHATASE 63 U/L (45-117); CHOLESTEROL 135 mg/dl (0-200); LDL CHOLESTEROL CALCULATED 71 mg/dl; TOTAL PROTEIN 7.2 gm/dl (6.4-8.2)
== END | disposition home or self-care (01) ==
LOC: C.LABBFT 10:29
PROVIDERS: ATTEND Internal Medicine
DX: N18.3 Chronic kidney disease, stage 3 (moderate) (principal); E78.5 Hyperlipidemia, unspecified

== ENCOUNTER 2020-09-06 09:48 | Inpatient (IN) ==
[2020-09-06] MEDS ORDERED: ONDANSETRON INJ 2 MG/ML 2 ML VIAL IV STA ×2 (10:14→18:06)
[2020-09-06] MEDS ORDERED: MoRPHine SULFATE 4 MG/ML 1 ML CARP\\VIAL IV STA ×2 (10:14→12:22)
[2020-09-06] MEDS ORDERED: KETOROLAC TROMETHAMINE 15 MG/ML VIAL IV STA (10:14)
[2020-09-06] MEDS ORDERED: SODIUM CHLORIDE 0.9% 1000ML 1,000 ML IV SCH (10:15)
--- NOTE | 2020-09-06 10:19 | Emergency Department Note ---
Impression & Plan Kidney stone on left side, Acute UTI ED Provider Note Provider: Estevan Jarvis MD DATE OF SERVICE:09/06/2020 CHIEF COMPLAINT: Left leg pain HISTORY OF PRESENT ILLNESS: Patient is a 75-year-old gentleman with a history of CKD, hypertension, and aortic stenosis presenting here today with onset at 330 this morning of sudden sharp left flank pain. No significant radiation to the abdomen. Reports little bit of hematuria. Pain is been waxing and waning although severe with some associated nausea. No trauma reported. No fever reported. No chest pain or shortness of breath reported. Patient states feels similar prior episodes of kidney stones and he has had prior stents and urological intervention for stones. Patient took some Advil at 330am when this started this morning. Last kidney stone was approximately 18 months to 2 years ago. Denies any radiation of the pain to the legs or myalgias. REVIEW OF SYSTEMS: A total of 10 review of systems was obtained and negative except as stated above in the HPI. PAST MEDICAL HISTORY: As noted above MEDICATIONS: Reviewed home medications SOCIAL HISTORY: Lives at home with PHYSICAL EXAM: GENERAL: alert and oriented in no acute distress on stretcher Head: normocephalic and atraumatic EYES: No injection, discharge or icterus. NECK: Trachea midline. LUNGS: Airway patent. No retractions. Breath sounds clear HEART: Regular rate and rhythm. No chest wall tenderness ABDOMEN: Soft and non-tender, without guarding or rebound. No masses BACK: Perhaps some slight left flank pain. SKIN: Acyanotic, warm, dry, without rashes EXTREMITIES: Without swelling, tenderness or deformity NEUROLOGICAL: No focal deficits. No aphasia. No facial droop or slurred speech. EK bpm normal sinus rhythm. No acute ST segment elevation or depression. Normal axis and QTC. CONTINUOUS CARDIAC MONITORING: was ordered and showed a heart rate of 74 bpm in normal sinus rhythm PDMP was checked without noted issue. Patient's laboratory studies and imaging reviewed. Differential includes Appendicitis, testicular torsion, infections, div erticulitis, UTI, obstruction, mesenteric ischemia, aortic pathology, inflammatory bowel disease, renal colic, PUD, pancreatitis, biliary pathology, hernia, volvulus, constipation, as well as other pathologies. IMPRESSION/MEDICAL DECISION MAKING: Patient presents with sudden onset of left flank pain similar prior episodes of kidney stone. Seems likely recurrence. Urinalysis was ordered as well as CT scan without contrast to evaluate for possible stone given his history of urological intervention. Patient was treated with morphine Zofran Toradol IV fluids to help with pain. Basic labs were obtained. No concerning sciatica symptoms or radicular symptoms. Doubt this represents acute cauda equina. Benign anterior abdomen doubt this represents diverticulitis or obstruction/perforation. Lipase was sent but seems less consistent with pancreatitis. Location the pain is atypical but I did complete a troponin EKG to help exclude ACS which I believe is unlikely. Does not seem consistent with acute aortic dissection given location. Leukocytosis 16 is noted without anemia. No significant hyperkalemia or hyponatremia is noted. Negative troponin. No evidence of transaminitis or elevated lipase. Doubt pancreatitis or hepatitis. Doubt acute ACS. Creatinine of 1.79 little bit higher than previous baseline of 1.4-1.5. Did receive IV fluids here. CT scan shows some stranding and hydronephrosis around the left kidney with a 14 mm stone at the left UPJ. Urinalysis shows concerns for infection with nitrates white cells and bacteria although there are some epithelial cells noted. Given large size of the stone and his return of pain requiring additional morphine here, discussed with the patient continued observation here in the hospital. He was agreeable this plan. Given a dose of ceftriaxone for empiric coverage the patient does not appear septic at this point is not having rigors or fever. Hospitalist was contacted. DIAGNOSIS: Left-sided kidney stone, UTI DISPOSITION: Hospitalist will evaluate Past Med/Surg History Medical History Aortic stenosis, supravalvular Benign prostate hyperplasia Carotid bruit Chronic kidney disease, stage 3 Depression Diverticulosis of colon Elevated PSA Grief reaction Hepatitis C antibody test negative 07/01/2020 Hyperlipidemia Internal hemorrhoids Male erectile disorder of organic origin Mitral regurgitation Nephrolithiasis Pre-diabetes Tinea versicolor Tubular adenoma of colon Surgical History History of lithotripsy Family History Mother Hypertension Heart disease Denies family history of Prostate cancer Colorectal cancer Colonic polyp Social History Smoking Status: Never smoker Second Hand Exposure: No; Hx Alcohol Use: No Hx Substance Use: No Preferred Language: Maltese Communication Ability: Effective Hearing Ability: Normal Aircraft Manager Required: No Beliefs That Will Affect Care: None marital status: Engaged Current Living Situation: Significant Other current occupational status: retired current occupation: [employer] Feels Safe at Home: Yes Seatbelt Use: always Sunscreen Use: No Assistive Devices: None Allergies Allergies Allergy/AdvReac Type Severity Reaction Status Date / Time amlodipine Allergy Unknown FACIAL Verified 09/06/20 10:27 DISCOMFORT/SWELLING atorvastatin Allergy Unknown MUSCLE Verified 09/06/20 10:27 TIGHTENING Home Meds Home Medications Medication Instructions Recorded Confirmed aspirin 81 mg tablet,delayed 81 mg PO DAILY tab 05/19/19 09/06/20 release Previous Rx's Medication Instructions Recorded sildenafil 50 mg tablet 50 mg PO DAILY PRN #6 tab 12/26/19 valsartan 320 1 tab PO DAILY #90 tab 01/17/20 mg-hydrochlorothiazide 12.5 mg tablet diltiazem HCl 360 mg capsule,24 360 mg PO DAILY #90 cap 08/20/20 hr,extended release finasteride 5 mg tablet 5 mg PO DAILY #90 tab 08/20/20 pravastatin 80 mg tablet 80 mg PO DAILY #90 tab 08/20/20 terazosin 5 mg capsule 5 mg PO DAILY #90 cap 08/20/20 Results & Data (ED) Vital Signs Vital Signs - 24 hr 09/06/20 09:57 09/06/20 10:27 09/06/20 12:22 Temperature 36.9 C Temperature Source Oral Pulse Rate 72 62 Pulse Rate [Right Finger] 62 Pulse Rhythm Regular Pulse Rhythm [Right Finger] Regular Pulse Strength [Right Finger] Normal Respiratory Rate 20 18 18 Respiratory Effort / Characteristics Non-Labored Non-Labored Spontaneous Respiratory Depth Normal Normal Respiratory Pattern Regular Blood Pressure 137/67 Blood Pressure [Right Arm] 171/76 H Blood Pressure Mean 90 Blood Pressure Mean [Right Arm] 107 Blood Pressure Position [Right Arm] Lying Pulse Oximetry 96 97 97 Oxygen Delivery Method Room Air Room Air Room Air Sepsis Recent Fever Within 48 Hours No Sepsis New/Unexplained Change in Mental Status N/A Sepsis Action Taken by Nursing No Action Required 09/06/20 12:25 Temperature Temperature Source Pulse Rate Pulse Rate [Right Finger] 61 Pulse Rhythm Pulse Rhythm [Right Finger] Regular Pulse Strength [Right Finger] Normal Respiratory Rate 18 Respiratory Effort / Characteristics Non-Labored Spontaneous Respiratory Depth Normal Respiratory Pattern Regular Blood Pressure Blood Pressure [Right Arm] 154/76 H Blood Pressure Mean Blood Pressure Mean [Right Arm] 102 Blood Pressure Position [Right Arm] Sitting Pulse Oximetry 96 Oxygen Delivery Method Room Air Sepsis Recent Fever Within 48 Hours Sepsis New/Unexplained Change in Mental Status Sepsis Action Taken by Nursing Laboratory Data Result diagrams: 09/06/20 10:40 09/06/20 10:40 Lab Results 09/06/20 09/06/20 09/06/20 Range/Units 10:40 10:40 11:07 WBC 16.22 H (4.8-10.8) K/uL RBC 5.20 (4.7-6.1) M/uL Hgb 15.8 (14.0-18.0) g/dL Hct 46.2 (42-52) % MCV 88.8 (80-100) fL MCH 30.4 (25-34) pg MCHC 34.2 (32-36) g/dL RDW Std Deviation 44.3 (36.4-46.3) fL RDW Coeff of Sajan 13.6 (11.5-14.5) % Plt Count 235 (130-400) K/uL MPV 10.1 (7.4-10.4) fL Immature Gran % (Auto) 0.3 % Neut % (Auto) 84.0 % Lymph % (Auto) 8.0 % [place] % (Auto) 7.0 % Eos % (Auto) 0.6 % Baso % (Auto) 0.1 % Neut # (Auto) 13.64 H (1.4-6.5) K/uL Lymph # (Auto) 1.29 (1.2-3.4) K/uL [place] # (Auto) 1.13 H (0.11-0.59) K/uL Eos # (Auto) 0.09 (0-0.5) K/uL Baso # (Auto) 0.02 (0-0.2) K/uL Immature Gran # (Auto) 0.05 H (0.00-0.02) K/uL Sodium 141 (136-145) mmol/L Potassium 4.0 (3.5-5.1) mmol/L Chloride 110 H (98-107) mmol/L Carbon Dioxide 25 (21-32) mmol/L Anion Gap 6.0 (3-11) BUN 23 H (7-18) mg/dl Creatinine 1.79 H (0.6-1.4) mg/dl Est Cr Clr Drug Dosing 38.9 ml/min Est GFR ( Amer) 42.3 Est GFR (Non-Af Amer) 36.5 BUN/Creatinine Ratio 12.6 (10-20) Glucose 126 H (70-99) mg/dl Calcium 8.5 (8.5-10.1) mg/dl Total Bilirubin 0.7 (0.2-1) mg/dl AST 26 (15-37) U/L ALT 36 (12-78) U/L Alkaline Phosphatase 85 (45-117) U/L Troponin I < 0.015 (0-0.045) ng/ml Total Protein 7.7 (6.4-8.2) gm/dl Albumin 4.0 (3.4-5.0) gm/dl Globulin 3.7 (2.5-4.0) gm/dl Albumin/Globulin Ratio 1.1 (0.9-2) Lipase 144 (73-393) U/L Urine Color Yellow Urine Appearance Cloudy A (Clear) Urine pH 6.0 (4.5-7.5) Ur Specific [place] 1.026 (1.000-1.030) Urine Protein Negative (Negative) Urine Glucose (UA) Negative (Negative) Urine Ketones Negative (Negative) Urine Blood 2+ H (Negative) Urine Nitrite Positive A (Negative) Urine Bilirubin Negative (Negative) Urine Urobilinogen Negative (Negative) Ur Leukocyte Esterase 3+ H (Negative) Urine WBC (Auto) >30 H (0-5) /hpf Urine RBC (Auto) 5-10 H (0-4) /hpf U Hyaline Cast (Auto) 0 (0-5) /lpf U Epithel Cells (Auto) 20-30 H (0-5) /lpf Urine Bacteria (Auto) 4+ H (Negative) Administered Medications Discontinued Medications Sodium Chloride (Nss 1000ml) 1,000 mls @ 999 mls/hr IV .Q1H1M OLEG Stop: 09/06/20 11:15 Last Infusion: 09/06/20 11:40 Dose: 0 mls/hr Documented by: [id number] Admin: 09/06/20 10:40 Dose: 999 mls/hr Documented by: [id number] Ceftriaxone Sodium (Rocephin) 2,000 mg in 70 mls @ 140 mls/hr IV NOW STA Stop: 09/06/20 13:05 Last Infusion: 09/06/20 13:19 Dose: 0 mls/hr Documented by: [id number] Admin: 09/06/20 12:49 Dose: 140 mls/hr Documented by: [id number] Ketorolac Tromethamine (Ketorolac Tromethamine 15 Mg/Ml Vial) 10 mg IV NOW STA Stop: 09/06/20 10:15 Last Admin: 09/06/20 10:41 Dose: 10 mg Documented by: [id number] Morphine Sulfate (Morphine Sulfate 4 Mg/Ml 1 Ml Carp\Vial) 4 mg IV NOW STA Stop: 09/06/20 10:15 Last Admin: 09/06/20 10:41 Dose: 4 mg Documented by: [id number] Morphine Sulfate (Morphine Sulfate 4 Mg/Ml 1 Ml Carp\Vial) 4 mg IV NOW STA Stop: 09/06/20 12:23 Last Admin: 09/06/20 12:29 Dose: 4 mg Documented by: [id number] Ondansetron HCl (Ondansetron Inj 2 Mg/Ml 2 Ml Vial) 4 mg IV NOW STA Stop: 09/06/20 10:15 Last Admin: 09/06/20 10:41 Dose: 4 mg Documented by: [id number] Discharge Plan Visit Data Chief Complaint: Kidney Stone Stated Complaint: LEFT SIDE KIDNEY STONE PAIN ED Provider: Estevan Jarvis Discharge Problem: Kidney stone on left side, Acute UTI Patient Disposition: Admitted As Inpatient Discharge Instructions Interventions: ED Discharge Assessment Last Done: 09/06/20 13:33
[2020-09-06 10:50] LABS: Basophils # (auto) 0.02 K/uL (0-0.2); Basophils % (auto) 0.1 %; Eosinophils # (auto) 0.09 K/uL (0-0.5); Eosinophils % (auto) 0.6 %; Hematocrit (blood only) 46.2 % (42-52); Hemoglobin 15.8 g/dL (14.0-18.0); Immature Granulocytes # (auto) 0.05 K/uL (0.00-0.02); Immature Granulocytes % (auto) 0.3 %; Lymphocytes # (auto) 1.29 K/uL (1.2-3.4); Mean Corpuscular Hemoglobin 30.4 pg (25-34); Mean Corpuscular Hgb Conc 34.2 g/dL (32-36); Mean Corpuscular Volume 88.8 fL (80-100); Mean Platelet Volume 10.1 fL (7.4-10.4); Monocytes # (auto) 1.13 K/uL (0.11-0.59); Neutrophils # (auto) 13.64 K/uL (1.4-6.5); Platelet Count 235 K/uL (130-400); RDW Coefficient of Variation 13.6 % (11.5-14.5); RDW Standard Deviation 44.3 fL (36.4-46.3); White Blood Count 16.22 K/uL (4.8-10.8)
[2020-09-06 11:07] LABS: Alanine Aminotransferase 36 U/L (12-78); Aspartate Aminotransferase 26 U/L (15-37); BUN Creatinine Ratio 12.6 (10-20); Blood Urea Nitrogen 23 mg/dl (7-18); Calcium 8.5 mg/dl (8.5-10.1); Carbon Dioxide 25 mmol/L (21-32); Chloride 110 mmol/L (98-107); Creatinine Clr Calc Pharmacy 38.9 ml/min; Est GFR (African American) 42.3; Est GFR (Non-African American) 36.5; Glucose 126 mg/dl (70-99); Lipase 144 U/L (73-393); Sodium 141 mmol/L (136-145)
[2020-09-06 11:12] LABS: Albumin Globulin Ratio 1.1 (0.9-2); Alkaline Phosphatase 85 U/L (45-117); Bilirubin,Total 0.7 mg/dl (0.2-1); Globulin 3.7 gm/dl (2.5-4.0); Total Protein 7.7 gm/dl (6.4-8.2); Troponin I < 0.015 ng/ml (0-0.045)
--- NOTE | 2020-09-06 11:20 | CT Scan Report ---
CT SCAN OF THE ABDOMEN AND PELVIS WITHOUT CONTRAST CLINICAL HISTORY: L flank pain hx stones COMPARISON STUDY: January 28, 2018 TECHNIQUE: CT scan of the abdomen and pelvis was performed from the lung bases to the proximal femurs . Images are reviewed in the axial, sagittal, and coronal planes. IV contrast was not administered fo r this examination. A dose lowering technique was utilized adhering to the principles of ALARA. CT DOSE: 617.38 mGy.cm FINDINGS: Lower chest: There is trace pleural fluid. There is a small hiatal hernia. Liver: The unenhanced liver is normal in size, contour, and attenuation. There is no intrahepatic gustavo iary ductal dilatation. Gallbladder: Unremarkable. Spleen: Normal in size and attenuation. Pancreas: Unremarkable. Adrenal glands: Unremarkable. Kidneys: There is a 12 cm lower pole right renal cyst with areas of cyst wall calcification. There is left-sided hydronephrosis and perinephric stranding. There is a 14 mm calculus at the level the left ureteropelvic junction. This is felt to be the etiology of the left-sided hydronephrosis and perinep hric stranding. Bowel: There are no transition zones to indicate bowel obstruction. There is colonic diverticulosis. There is no evidence of acute diverticulitis. There is no evidence of acute appendicitis. There is a 1 cm hypodense structure adjacent the appendiceal tip. This may represent a prominent lymph node. Peritoneum: There is no intraperitoneal free air or abdominal ascites. There are lipomatous inguinal canals versus fat-containing inguinal hernias Vasculature: The abdominal aorta is normal in course and caliber. Adenopathy: There is a 1 cm hypodense structure adjacent to the appendix which may represent a promin ent lymph node Pelvic viscera: There is mild bladder wall thickening. There is prostatomegaly. Skeletal structures: There is a T9 vertebral body hemangioma IMPRESSION: 1. 14 mm left ureteropelvic junction calculus with secondary obstructive changes 2. 12 cm lower pole right renal cyst with rim calcification 3. No evidence of bowel obstruction. No evidence of free air 4. Prostatomegaly and mild bladder wall thickening ACT 112: Negative or not required by law. Electronically signed by: Rian Boyd M.D. 09/06/2020 11:18 AM
[2020-09-06 11:38] LABS: Appearance Urine Cloudy (Clear); Bacteria Urine Automated 4+ (Negative); Bilirubin Urine Negative (Negative); Blood Urine 2+ (Negative); Cast Urine Automated 0 /lpf (0-5); Color Urine Yellow; Epithelial Cell Urine Auto 20-30 /lpf (0-5); Glucose Urine UA Negative (Negative); Ketones Urine Negative (Negative); Leukocyte Esterase Urine 3+ (Negative); Nitrite Urine Positive (Negative); Protein Urine Negative (Negative); Specific Gravity Urine 1.026 (1.000-1.030); Urobilinogen Urine Negative (Negative); WBC Urine Automated >30 /hpf (0-5)
[2020-09-06] MEDS ORDERED: cefTRIAXone SODIUM 2,000 MG/70 ML BAG IV STA (12:36)
--- NOTE | 2020-09-06 13:06 | History & Physical Report ---
Date of Service September 06, 2020 Assessment & Plan (1) Kidney stone: CT a/p in the ED showed left-sided, 14 mm stone with hydronephrosis and perinephric stranding. - Consulted urology - Continue home alpha-rosalie - Start ceftriaxone for dirty UA; follow urine culture - Pain control (acetaminophen, morphine, & low-dose Toradol given CKD) (2) Benign prostate hyperplasia: No LUTS at present. - Continue finasteride & terazosin (3) Chronic kidney disease, stage 3: Baseline Cr ~1.4 - 1.5. - Presently Cr is 1.8. Possibly due to obstruction due to stone. - IV fluids - Stone plan as above (4) Hypertension: BP is 155/75 in the ED. - Continue home diltiazem - Hold valsartan/HCTZ until ARABELLA resolves (5) Hyperlipidemia: - Continue pravastatin (6) Pre-diabetes: A1c was 5.6% in 07/2020. - Monitor blood sugars with AM labs (7) DVT prophylaxis: SCDs - Low DVT risk per admission calculator & holding heparin for possible procedure History of Present Illness Primary Care Provider: Ryne Block MD 75yo M w/ hx of kidney stones and BPH who presents with a kidney stone. Pain began last night at approx 3am. It was a constant, 7/10, stabbing pain in the left flank with nausea. No improvement overnight and came to the ED for pain management. CT a/p in the ED showed left-sided, 14 mm stone with hydronephrosis and perinephric stranding. In the ED, he received morphine and ketorolac which improved his pain. Allergies Allergy/AdvReac Type Severity Reaction Status Date / Time amlodipine Allergy Unknown FACIAL Verified 09/06/20 10:27 DISCOMFORT/SWELLING atorvastatin Allergy Unknown MUSCLE Verified 09/06/20 10:27 TIGHTENING Lipitor TABS Allergy Unknown Unknown Uncoded 09/06/20 10:27 Norvasc TABS Allergy Unknown Unknown Uncoded 09/06/20 10:27 Home Medications Home Medications Medication Instructions Recorded Confirmed Type aspirin 81 mg tablet,delayed 81 mg PO DAILY tab 05/19/19 09/06/20 History release sildenafil 50 mg tablet 50 mg PO DAILY PRN #6 tab 12/26/19 09/06/20 Rx valsartan 320 1 tab PO DAILY #90 tab 01/17/20 09/06/20 Rx mg-hydrochlorothiazide 12.5 mg tablet diltiazem HCl 360 mg capsule,24 360 mg PO DAILY #90 cap 08/20/20 09/06/20 Rx hr,extended release finasteride 5 mg tablet 5 mg PO DAILY #90 tab 08/20/20 09/06/20 Rx pravastatin 80 mg tablet 80 mg PO DAILY #90 tab 08/20/20 09/06/20 Rx terazosin 5 mg capsule 5 mg PO DAILY #90 cap 08/20/20 09/06/20 Rx Past Med/Surg History Medical History Aortic stenosis, supravalvular Benign prostate hyperplasia Carotid bruit Chronic kidney disease, stage 3 Depression Diverticulosis of colon Elevated PSA Grief reaction Hepatitis C antibody test negative 07/01/2020 Hyperlipidemia Internal hemorrhoids Male erectile disorder of organic origin Mitral regurgitation Nephrolithiasis Pre-diabetes Tinea versicolor Tubular adenoma of colon Surgical History History of lithotripsy Family History Mother Hypertension Heart disease Denies family history of Prostate cancer Colorectal cancer Colonic polyp Social History Smoking Status: Never smoker Hx Alcohol Use: No Hx Substance Use: No Preferred Language: Tuvaluan Hearing Ability: Normal marital status: Engaged Current Living Situation: Significant Other current occupational status: retired current occupation: [employer] Feels Safe at Home: Yes Seatbelt Use: always Sunscreen Use: No Review of Systems Review of Systems: All systems reviewed & are unremarkable except as noted in HPI & below Physical Exam Constitutional: WD/WN, vitals as above Eyes: EOM intact bilaterally; no conjunctival abnormality ENMT: external ear and nose normal, oropharynx normal Neck: trachea midline, no thyromegaly normal visual inspection Respiratory: normal respiratory effort, lungs clear to auscultation no respiratory distress Cardiovascular: RRR, no murmur, no edema Gastrointestinal (Abdomen): Inspection/Auscultation: abdomen normal to inspection; abdomen not distended Musculoskeletal: no cyanosis or clubbing, extremities motor strength 5/5 Skin: no rashes, warm and dry Neurologic: moves all extremities and awake Psychiatric: Orientation: alert, oriented to person and cooperative Genitourinary: + CVA tenderness (Left) Results & Data Results & Data ([facility]) Vital Signs (Past 12 Hours) Vital Signs Temp Pulse Pulse Resp BP BP Pulse Ox 09/06/20 12:25 61 18 154/76 H 96 09/06/20 12:22 62 18 97 09/06/20 10:27 62 18 171/76 H 97 09/06/20 09:57 36.9 C 72 20 137/67 96 Code Status & VTE Plan VTE Prophylaxis Plan VTE Prophylaxis will be ordered: Yes PG Care Time/CCT Total # of Minutes Spent Total Time Spent with Patient: Total time spent is greater than 50% in coordination of care (as documented) at patient's floor/unit and/or counseling patient: Coding Level of Care Code 37705 Initial Inpt Care Lvl 3 Diagnoses Kidney stone N20.0 Benign prostate hyperplasia N40.0 Chronic kidney disease, stage 3 N18.3 Hypertension I10 Hyperlipidemia E78.5 Pre-diabetes R73.03 DVT prophylaxis Z29.9
[2020-09-06] MEDS ORDERED: ONDANSETRON INJ 2 MG/ML 2 ML VIAL IV PRN ×2 (13:55→14:42)
[2020-09-06] MEDS ORDERED: ACETAMINOPHEN 325 MG TAB PO PRN (13:55)
--- NOTE | 2020-09-06 13:56 | Urology Consultation ---
Date of Consultation September 06, 2020 Assessment & Plan (1) Kidney stone: Patient with large obstructing stone of the left renal pelvis and large right renal cyst. Presented with pain, discomfort, and ill feelings. Significant perinephric stranding. Risks and benefits discussed at length for procedure. These include bleeding, infection, injury to surrounding tissues or organs, and risks associated with anesthesia. Patient states understanding and agrees to proceed. Will sign consent and schedule. Plan for cystoscopy with left stent placement. (2) Benign prostate hyperplasia: (3) Renal cyst: History of Present Illness Attending Physician: Luis Jones MD History of Present Illness New consultation for patient with stone, discomfort, obstruction, and ill feelings. History of stones in the past. History of renal injury on right side. Patient developed sudden onset of pain into left flank going down and radiating into groin and back in waves comes and goes. Can be severe at times. Main issue has been nausea Discussed and reviewed patient's family history for any history of stone disease. Also, discussed patient's medical surgery history especially related to any history of urinary issues or stone disease. No family history of significant maligancy. Multiple family members with stones as well. Patient was admitted by hospitalist with plans for stent. Allergies Allergy/AdvReac Type Severity Reaction Status Date / Time amlodipine Allergy Unknown FACIAL Verified 09/06/20 10:27 DISCOMFORT/SWELLING atorvastatin Allergy Unknown MUSCLE Verified 09/06/20 10:27 TIGHTENING Home Medications Home Medications Medication Instructions Recorded Confirmed Type aspirin 81 mg tablet,delayed 81 mg PO DAILY tab 05/19/19 09/06/20 History release sildenafil 50 mg tablet 50 mg PO DAILY PRN #6 tab 12/26/19 09/06/20 Rx valsartan 320 1 tab PO DAILY #90 tab 01/17/20 09/06/20 Rx mg-hydrochlorothiazide 12.5 mg tablet diltiazem HCl 360 mg capsule,24 360 mg PO DAILY #90 cap 08/20/20 09/06/20 Rx hr,extended release finasteride 5 mg tablet 5 mg PO DAILY #90 tab 08/20/20 09/06/20 Rx pravastatin 80 mg tablet 80 mg PO DAILY #90 tab 08/20/20 09/06/20 Rx terazosin 5 mg capsule 5 mg PO DAILY #90 cap 08/20/20 09/06/20 Rx Patient History Medical History Aortic stenosis, supravalvular Benign prostate hyperplasia Carotid bruit Chronic kidney disease, stage 3 Depression Diverticulosis of colon Elevated PSA Grief reaction Hepatitis C antibody test negative 07/01/2020 Hyperlipidemia Internal hemorrhoids Male erectile disorder of organic origin Mitral regurgitation Nephrolithiasis Pre-diabetes Tinea versicolor Tubular adenoma of colon Surgical History History of lithotripsy Family History Mother Hypertension Heart disease Denies family history of Prostate cancer Colorectal cancer Colonic polyp Social History Smoking Status: Never smoker Second Hand Exposure: No; Hx Alcohol Use: No Hx Substance Use: No Preferred Language: Setswana Communication Ability: Effective Hearing Ability: Normal Neurology Teacher Required: No Beliefs That Will Affect Care: None marital status: Engaged Current Living Situation: Significant Other current occupational status: retired current occupation: [employer] Feels Safe at Home: Yes Seatbelt Use: always Sunscreen Use: No Assistive Devices: None Review of Systems Review of Systems: All systems reviewed & are unremarkable except as noted in HPI & below Physical Exam Physical Exam: General: Alert and oriented x 3 in no acute distress. Patient is well nourished and well kept. HEENT: Normocephalic Atraumatic. Inspection normal. Cranial Nerves 2-12 Grossly intact. Nares are clear. Neck is supple. Normal inspection of face. Normal inspection of neck. Neurologic: No deficits on inspection. Baseline for motor function and sensory. Psychologic: Normal affect. Respiratory: Nonlabored. No use of accessory muscles. No tachypnea or dyspnea. Cardiovascular: No tachycardia Skin: [place] and Dry. No rashes or visible lesions. Extremities: Moving without issues. No motor deficits on inspection Lymphatics: No edema Abdomen: Soft Non-distended. No acites. No rebound or guarding. Results & Data ([facility]) Vital Signs (Past 12 Hours) Vital Signs Temp Pulse Pulse Resp BP BP Pulse Ox 09/06/20 13:33 60 18 162/76 H 96 09/06/20 13:25 60 18 162/74 H 96 09/06/20 12:25 61 18 154/76 H 96 09/06/20 12:22 62 18 97 09/06/20 10:27 62 18 171/76 H 97 09/06/20 09:57 36.9 C 72 20 137/67 96 PG Care Time/CCT Total # of Minutes Spent Total Time Spent with Patient: Total time spent is greater than 50% in coordination of care (as documented) at patient's floor/unit and/or counseling patient: Coding Level of Care Code 50798 Initial Inpt Care Lvl 3 Diagnoses Kidney stone N20.0 Benign prostate hyperplasia N40.0 Renal cyst N28.1
[2020-09-06] MEDS ORDERED: fentaNYL citrate 100 MCG/2 ML VIAL IV PRN (14:42)
[2020-09-06] MEDS ORDERED: ePHEDrine sulfate 50 MG/ML AMP IV PRN (14:42)
[2020-09-06] MEDS ORDERED: ATROPINE SULFATE 0.1 MG/ML 10ML SYR IV PRN (14:42)
[2020-09-06] MEDS ORDERED: PROPOFOL IV EMULSION 10 MG/ML 20 ML VIAL IV ONE (14:47)
[2020-09-06] MEDS ORDERED: MIDAZOLAM HCL 1 MG/ML 2ML VIAL ONE (14:47)
[2020-09-06] MEDS ORDERED: fentaNYL citrate 100 MCG/2 ML VIAL ONE (14:47)
[2020-09-06] MEDS ORDERED: LIDOCAINE HCL 2% 2 ML VIAL/AMP(20MG/ML) INFIL ONE (14:47)
--- NOTE | 2020-09-06 14:52 | Anesthesiology Consultation ---
Date of Service September 06, 2020 Assessment & Plan Chart Review Chart Review: Acceptable Risk for Surgery Consults Requested none ASA ASA3 Proposed Anesthesia Anesthesia Type: MAC Risk / Benefits Reviewed With: PT / POA / Parent / Guardian, Accepts Plan and Informed Consent Obtained History Surgery Operation Date: 09/06/20 13:40 Proposed Procedures p Cystoscopy(Left) - Raymond Gannon DO s Ureteral Stent Insertion/Removal - Raymond Gannon DO Height/Weight Height: 5 ft 8 in Weight: 87.2 kg Allergies Allergy/AdvReac Type Severity Reaction Status Date / Time amlodipine Allergy Unknown FACIAL Verified 09/06/20 10:27 DISCOMFORT/SWELLING atorvastatin Allergy Unknown MUSCLE Verified 09/06/20 10:27 TIGHTENING Medications Home Medications Medication Instructions Recorded Confirmed Last Taken aspirin 81 mg tablet,delayed 81 mg PO DAILY tab 05/19/19 09/06/20 09/06/20 release sildenafil 50 mg tablet 50 mg PO DAILY PRN #6 tab 12/26/19 09/06/20 Unknown valsartan 320 1 tab PO DAILY #90 tab 01/17/20 09/06/20 09/06/20 mg-hydrochlorothiazide 12.5 mg tablet diltiazem HCl 360 mg capsule,24 360 mg PO DAILY #90 cap 08/20/20 09/06/20 09/06/20 hr,extended release finasteride 5 mg tablet 5 mg PO DAILY #90 tab 08/20/20 09/06/20 09/06/20 pravastatin 80 mg tablet 80 mg PO DAILY #90 tab 08/20/20 09/06/20 09/06/20 terazosin 5 mg capsule 5 mg PO DAILY #90 cap 08/20/20 09/06/20 09/06/20 Past Medical History Medical History Aortic stenosis, supravalvular Benign prostate hyperplasia Carotid bruit Chronic kidney disease, stage 3 Depression Diverticulosis of colon Elevated PSA Grief reaction Hepatitis C antibody test negative 07/01/2020 Hyperlipidemia Internal hemorrhoids Male erectile disorder of organic origin Mitral regurgitation Nephrolithiasis Pre-diabetes Tinea versicolor Tubular adenoma of colon Exercise / Class Metabolic Activity II 4-5 Yardwork/Stairs/Walk up hill Past Family History Family History Mother Hypertension Heart disease Denies family history of Prostate cancer Colorectal cancer Colonic polyp Past Surgical History Surgical History History of lithotripsy Past Anesthesia History No Hx of Anesthesia Complications and No Family Hx of Anesthesia Complications History of PONV No Hx of PONV and No Hx of Motion Sickness Social History Smoking Status: Never smoker Do You Dip or Chew Tobacco: No Hx Alcohol Use: No Hx Substance Use: No Physical Exam Vital Signs Last Vital Signs Temp 98.4 F 09/06/20 09:57 Pulse 64 09/06/20 13:35 Resp 18 09/06/20 13:35 BP 170/71 H 09/06/20 13:35 Pulse Ox 95 09/06/20 13:35 ENMT Mouth: no dentition abnormality Thyromental Distance: > or= 3.5 Finger Breadths Mallampati Class: II Neck normal visual inspection Respiratory normal respiratory effort Auscultation: lungs clear to auscultation bilaterally Cardiovascular Rate/Rhythm: regular rate and regular rhythm Heart Sounds: + murmur (NALLELY 2/6) Testing Laboratory Results 09/06/20 10:40 09/06/20 10:40 Urine Color Yellow 09/06/20 11:07 Urine Appearance Cloudy (Clear) A 09/06/20 11:07 Urine pH 6.0 (4.5-7.5) 09/06/20 11:07 Ur Specific [place] 1.026 (1.000-1.030) 09/06/20 11:07 Urine Protein Negative (Negative) 09/06/20 11:07 Urine Glucose (UA) Negative (Negative) 09/06/20 11:07 Urine Ketones Negative (Negative) 09/06/20 11:07 Urine Nitrite Positive (Negative) A 09/06/20 11:07 Ur Leukocyte Esterase 3+ (Negative) H 09/06/20 11:07 Urine WBC (Auto) >30 /hpf (0-5) H 09/06/20 11:07 Urine RBC (Auto) 5-10 /hpf (0-4) H 09/06/20 11:07 U Hyaline Cast (Auto) 0 /lpf (0-5) 09/06/20 11:07 U Epithel Cells (Auto) 20-30 /lpf (0-5) H 09/06/20 11:07 Urine Bacteria (Auto) 4+ (Negative) H 09/06/20 11:07
[2020-09-06] MEDS ORDERED: DIATRIZOATE MEGLUMINE 30% 100ML VIAL INSTIL PRN (15:26)
--- NOTE | 2020-09-06 15:26 | Operative Report ---
PG Post Operative Report Pre & Post Diagnosis Operation Date: 09/06/20 13:40 Pre-Op Diagnosis: LEFT KIDNEY STONE Post-Op Diagnosis: LEFT KIDNEY STONE I identified the patient and participated in the time-out.: Yes Procedure Operation Date: 09/06/20 13:40 Actual Procedures p Cystoscopy(Left) - Raymond Gannon DO s Retrograde pyelogram, Aspiration of urine, Ureteral Stent Insertion LEFT(Left) - Raymond Gannon DO Surgeon Raymond Gannon, II, DO Ui Developer None Estimated Blood Loss 1 Findings Consistent with Post-Op Diagnosis Stent placed in good position. Specimens Urine left renal pelvis Drains 6 Fr Multilength Anesthesia Type MAC Complications none Disposition Disposition: Recovery Room Indications Patient with obstruction. Risks and benefits discussed at length. Description of Procedure Patient was consented and brought back to the operating room. Patient was placed under anesthesia in the supine position and moved to the dorsal lithotomy position. Patient was prepped and draped in the regular sterile fashion. A time out was completed. A 30degree Cystoscope was placed into the bladder and the entire bladder was examined. The UO's were identified. The UO was cannulized with a catheter, urine was aspirated, and a retrograde pyelogram was completed. A wire was then placed. With the wire in place, a 6 Fr Double J stent was placed. It was confirmed with fluoroscopy. With the stent in place, the bladder was emptied. The scope was removed. The patient was cleaned, aroused from anesthesia, and transferred to the pacu in stable condition having tolerated the procedure well with no complications. I was present and participated in all aspects of the procedure. The patient will be monitored in the PACU until transferred. I attest to the content of the Intraoperative Record and any orders documented therein. Any exceptions are noted below.
--- NOTE | 2020-09-06 15:38 | Fluoroscopy Report ---
FL retrograde includes kub CLINICAL HISTORY: LEFT STENT obstructing left UPJ calculus COMPARISON STUDY: CT scan dated 09/06/2020 FLUOROSCOPY TIME: 53 seconds. NUMBER OF FLUOROSCOPIC IMAGES: 2 FINDINGS: 2 intraoperative fluoroscopic spot images are provided for interpretation. These reveal a d ouble pigtail left sided nephroureteral stent. Contrast opacifies the left renal collecting system wh ich appears mildly dilated. IMPRESSION: Intraoperative fluoroscopic spot images demonstrating a double pigtail left sided nephro ureteral stent ACT 112: Negative or not required by law. Electronically signed by: Rian Boyd M.D. 09/06/2020 3:37 PM
--- NOTE | 2020-09-06 16:06 | Anesthesiology Progress Note ---
Date of Service September 06, 2020 Anesthesia Post Procedure Vital Signs Vital Signs: Temp Pulse Pulse Pulse Resp BP BP 09/06/20 15:50 99.0 F 63 16 144/69 H 09/06/20 15:40 66 16 140/73 09/06/20 15:34 99.0 F 71 16 161/70 H 09/06/20 13:35 64 18 170/71 H 09/06/20 13:33 60 18 162/76 H 09/06/20 13:25 60 18 162/74 H 09/06/20 12:25 61 18 154/76 H 09/06/20 12:22 62 18 09/06/20 10:27 62 18 171/76 H 09/06/20 09:57 98.4 F 72 20 137/67 Pulse Ox 09/06/20 15:50 94 09/06/20 15:40 95 09/06/20 15:34 97 09/06/20 13:35 95 09/06/20 13:33 96 09/06/20 13:25 96 09/06/20 12:25 96 09/06/20 12:22 97 09/06/20 10:27 97 09/06/20 09:57 96 Pain Intensity Left Abdomen: Pain Intensity: 1 Transfer of Care Handoff Completed per policy Notes Mental Status: alert / awake / arousable and participated in evaluation Patient Amnestic to Procedure: Yes Nausea / Vomiting: adequately controlled Pain: adequately controlled Airway Patency, RR, SpO2: stable & adequate BP & HR: stable & adequate Hydration State: stable & adequate Anesthetic Complications: no major complications apparent and Pt Satisfied with anesthetic care
[2020-09-06] MEDS: NORMOSOL-R 1,000 ML IV SCH (16:25)
[2020-09-06] MEDS: KETOROLAC TROMETHAMINE 15 MG/ML VIAL IV PRN (20:05)
[2020-09-07] MEDS: NORMOSOL-R 1,000 ML IV SCH ×3 (01:09→20:03)
[2020-09-07] MEDS: MoRPHine SULFATE 4 MG/ML 1 ML CARP\\VIAL IV PRN ×4 (01:21→17:17)
[2020-09-07] MEDS: KETOROLAC TROMETHAMINE 15 MG/ML VIAL IV PRN (03:55)
[2020-09-07 07:56] LABS: Hematocrit (blood only) 41.3 % (42-52); Hemoglobin 13.9 g/dL (14.0-18.0); Mean Corpuscular Hemoglobin 30.9 pg (25-34); Mean Corpuscular Hgb Conc 33.7 g/dL (32-36); Mean Corpuscular Volume 91.8 fL (80-100); Mean Platelet Volume 10.4 fL (7.4-10.4); Platelet Count 219 K/uL (130-400); RDW Coefficient of Variation 14.1 % (11.5-14.5); RDW Standard Deviation 47.6 fL (36.4-46.3); White Blood Count 15.88 K/uL (4.8-10.8)
[2020-09-07 08:22] LABS: BUN Creatinine Ratio 13.1 (10-20); Creatinine Clr Calc Pharmacy 40.9 ml/min; Est GFR (Non-African American) 38.9; Magnesium 2.1 mg/dl (1.8-2.4)
[2020-09-07] MEDS: dilTIAZem HCL 180 MG CAPCR PO SCH (08:49)
[2020-09-07] MEDS: TERAZOSIN HCL 5 MG CAP PO SCH (08:50)
[2020-09-07] MEDS: PRAVASTATIN SOD 40 MG TAB PO SCH (08:51)
[2020-09-07] MEDS: FINASTERIDE 5 MG TAB PO SCH (08:51)
[2020-09-07] MEDS ORDERED: VALSARTAN 80 MG TAB PO SCH (09:00)
[2020-09-07] MEDS ORDERED: hydroCHLOROthiazide 25 MG TAB PO SCH (09:00)
[2020-09-07] MEDS ORDERED: VALSARTAN/HCTZ 320/12.5 MG TAB PO SCH (09:00)
[2020-09-07] MEDS: cefTRIAXone SODIUM 2,000 MG in DEXTROSE 5% 50 ML IV SCH (11:08)
[2020-09-07] MEDS ORDERED: oxyCODONE/ACETAMINOPHEN 5mg/325mg TAB PO PRN (11:15)
--- NOTE | 2020-09-07 11:44 | Urology Progress Note ---
Date of Service September 07, 2020 Assessment & Plan (1) Kidney stone on left side: Will need to be set up as outpatient for management of stone. Has stent in place for very large left-sided stone. Also has an extremely large right- sided renal cyst. Patient has been tolerating diet. Has not had considerable issues. Does have some significant pain with voiding into the back. Discussed that this is likely due to reflux and will likely discontinue after a few days. Discussed other concerns and issues. Patient monitor for fevers and chills. Awaiting full results from urinary assessment. Patient's kidney function is also being monitored. From urologic and can be discharged when medicine is comfortable sending him home with plans for symptomatic control and follow-up in the next 1 to 2 weeks for treatment. (2) Renal cyst: Admission and Anticipated Discharge Date Admission Date: September 06, 2020 Subjective Postop from stent placement for obstruction issues. Patient has been tolerating well. Has noticed some frequency and urgency. Has not had severe pain in the back and flank. Does have occasional burning and irritation. No severe episodes or major changes. No new nausea or vomiting. Had tolerated anesthesia without major problems Review of Systems Review of Systems: All systems reviewed & are unremarkable except as noted in HPI & below Physical Exam Physical Exam: General: Alert in no acute distress. HEENT: Normocephalic Atraumatic. Inspection normal. Cranial Nerves 2-12 Grossly intact. Normal inspection of face. Normal inspection of neck. Psychologic: Normal affect. Respiratory: Nonlabored. No use of accessory muscles. No tachypnea or dyspnea. Cardiovascular: No tachycardia Skin: Fabrica and Dry. No rashes or visible lesions. Extremities/Lymphatics: No edema Abdomen: Soft Non-distended. No rebound or guarding. Results & Data ([facility]) Vital Signs (Past 12 Hours) Vital Signs Temp Pulse Pulse Resp BP BP Pulse Ox 09/07/20 08:28 36.8 C 64 64 H 158/82 H 94 09/07/20 05:28 36.9 C 67 16 136/67 95 09/07/20 04:00 37 C 69 18 143/68 H 95 PG Care Time/CCT Total # of Minutes Spent Total Time Spent with Patient: Total time spent is greater than 50% in coordination of care (as documented) at patient's floor/unit and/or counseling patient: Coding Level of Care Code 61554 Subseq Hosp Care Lvl 3 Diagnoses Kidney stone on left side N20.0 Renal cyst N28.1
--- NOTE | 2020-09-07 12:23 | Electrocardiogram Report ---
Test Reason : Blood Pressure : / mmHG Vent. Rate : 068 BPM Atrial Rate : 068 BPM P-R Int : 172 ms QRS Dur : 088 ms QT Int : 384 ms P-R-T Axes : 000 063 021 degrees QTc Int : 408 ms Normal sinus rhythm Normal ECG No previous ECGs available Confirmed by Saurabh Nugent ([id number]) on 09/07/2020 12:23:14 PM Referred By: REFERRED SELF Confirmed By:Saurabh Nugent
[2020-09-07] MEDS: oxyCODONE/ACETAMINOPHEN 5mg/325mg TAB PO PRN (15:24)
[2020-09-07 15:54] LABS: BUN Creatinine Ratio 12.3 (10-20); Calcium 7.8 mg/dl (8.5-10.1); Creatinine Clr Calc Pharmacy 37.6 ml/min; Est GFR (African American) 40.7; Est GFR (Non-African American) 35.1; Potassium 3.6 mmol/L (3.5-5.1)
--- NOTE | 2020-09-07 16:25 | Hospitalist Progress Note ---
Date of Service September 07, 2020 Assessment & Plan (1) Kidney stone: CT a/p in the ED showed left-sided, 14 mm stone with hydronephrosis and perinephric stranding. - Consulted urology-now status post left double-J ureteral stent on 09/06 -Needs further outpatient management of large [id number] with urology - Continue home alpha-rosalie -Continue ceftriaxone for UTI; follow urine culture - Pain control-discontinue Toradol given worsening renal function, trial of Percocet to see if tolerates oral pain medicine to go home with -Because renal function is slightly worse even after hydration, will check post void residual and straight cath if greater than 200-[address] [place] cath eter if greater than 500 mL as per urology recommendation -We will continue to keep overnight for IV fluids and pain control -Urology suggest making him n.p.o. after midnight just in case he need to go back in on Tuesday (2) ARABELLA (acute kidney injury): Creatinine up to 1.7 on admission and remained at 1.7 this morning. Despite IV fluid hydration and stent placement, creatinine has increased further to 1.8 this afternoon He was noted to have significant prostamegaly as per urology Check postvoid residual as above straight cath as above if needed Continue IV fluids Follow BMP in the morning (3) Acute UTI: Urinalysis abnormal, urine culture pending Continue ceftriaxone Follow urine culture (4) Benign prostate hyperplasia: Checking post void residual as above - Continue finasteride & terazosin (5) Chronic kidney disease, stage 3: Baseline Cr ~1.4 - 1.5. -With acute kidney injury as above due to obstruction with stone and possibly BPH - IV fluids - Stone plan as above -Renally dose medications Avoid nephrotoxins-discontinue Toradol -Hold home valsartan/HCT-he did receive a dose this morning (6) Hypertension: Blood pressures are controlled - Continue home diltiazem - Hold valsartan/HCTZ until ARABELLA resolves (7) Hyperlipidemia: - Continue pravastatin (8) Pre-diabetes: A1c was 5.6% in 07/2020. - Monitor blood sugars with AM labs (9) Aortic stenosis, supravalvular: Mild aortic stenosis on recent echocardiogram Follows as an outpatient (10) DVT prophylaxis: SCDs - Low DVT risk per admission calculator & holding heparin for recent procedure Disposition-continued stay Admission and Anticipated Discharge Date Admission Date: September 06, 2020 Physical Exam Constitutional: WD/WN, vitals as above Eyes: + anicteric sclerae Neck: trachea midline, no thyromegaly Respiratory: normal respiratory effort, lungs clear to auscultation Cardiovascular: Rate/Rhythm: regular rate and regular rhythm Heart Sounds: + murmur (2/6 NALLELY at RUSB) Chest (Breasts): Chest: normal inspection of chest Gastrointestinal (Abdomen): Inspection/Auscultation: abdomen normal to inspection and normal bowel sounds; abdomen not distended Percus rc/Palpation: + abdomen tender (left CVA) and abdomen soft; no guarding and abdomen not rigid Musculoskeletal: Extremities: extremities normal to inspection; no cyanosis and no clubbing Skin: no rashes, warm and dry Neurologic: moves all extremities and awake; no focal motor deficits Psychiatric: A+Ox3, euthymic affect Lymphatic: no lymphedema Results & Data Results & Data ([facility]) Vital Signs (Past 12 Hours) Vital Signs Temp Pulse Pulse Resp BP Pulse Ox 09/07/20 12:27 36.7 C 62 18 132/69 92 09/07/20 08:28 36.8 C 64 64 H 158/82 H 94 09/07/20 05:28 36.9 C 67 16 136/67 95 Laboratory Results 09/07/20 09/07/20 09/07/20 Range/Units 15:16 07:15 07:15 WBC 15.88 H (4.8-10.8) K/uL RBC 4.50 L (4.7-6.1) M/uL Hgb 13.9 L (14.0-18.0) g/dL Hct 41.3 L (42-52) % MCV 91.8 (80-100) fL MCH 30.9 (25-34) pg MCHC 33.7 (32-36) g/dL RDW Std Deviation 47.6 H (36.4-46.3) fL RDW Coeff of Sajan 14.1 (11.5-14.5) % Plt Count 219 (130-400) K/uL MPV 10.4 (7.4-10.4) fL Sodium 138 142 (136-145) mmol/L Potassium 3.6 4.0 (3.5-5.1) mmol/L Chloride 104 108 H (98-107) mmol/L Carbon Dioxide 30 30 (21-32) mmol/L Anion Gap 4.0 4.0 (3-11) BUN 23 H 22 H (7-18) mg/dl Creatinine 1.85 H 1.70 H (0.6-1.4) mg/dl Est Cr Clr Drug Dosing 37.6 40.9 ml/min Est GFR ( Amer) 40.7 45.0 Est GFR (Non-Af Amer) 35.1 38.9 BUN/Creatinine Ratio 12.3 13.1 (10-20) Glucose 107 H 111 H (70-99) mg/dl Calcium 7.8 L 8.0 L (8.5-10.1) mg/dl Magnesium 2.1 (1.8-2.4) mg/dl PG Care Time/CCT Total # of Minutes Spent Total Time Spent with Patient: Total time spent is greater than 50% in coordination of care (as documented) at patient's floor/unit and/or counseling patient: Coding Level of Care Code 13417 Subseq Hosp Care Lvl 3 Diagnoses Kidney stone N20.0 ARABELLA (acute kidney injury) N17.9 Acute UTI N39.0 Benign prostate hyperplasia N40.0 Chronic kidney disease, stage 3 N18.3 Hypertension I10 Hyperlipidemia E78.5 Pre-diabetes R73.03 Aortic stenosis, supravalvular Q25.3 DVT prophylaxis Z29.9
[2020-09-07] MEDS: POLYETHYLENE (MIRALAX) 17 GM PACK PO SCH (17:55)
[2020-09-07] MEDS: DOCUSATE SODIUM/SENNA 50/8.6MG TAB PO SCH (17:55)
[2020-09-08] MEDS: NORMOSOL-R 1,000 ML IV SCH ×2 (03:21→18:08)
[2020-09-08 06:51] LABS: Basophils # (auto) 0.02 K/uL (0-0.2); Basophils % (auto) 0.2 %; Eosinophils % (auto) 0.9 %; Hematocrit (blood only) 39.9 % (42-52); Hemoglobin 13.5 g/dL (14.0-18.0); Immature Granulocytes # (auto) 0.02 K/uL (0.00-0.02); Immature Granulocytes % (auto) 0.2 %; Lymphocytes # (auto) 1.51 K/uL (1.2-3.4); Lymphocytes % (auto) 13.9 %; Mean Corpuscular Hemoglobin 30.7 pg (25-34); Mean Corpuscular Hgb Conc 33.8 g/dL (32-36); Mean Corpuscular Volume 90.7 fL (80-100); Mean Platelet Volume 9.9 fL (7.4-10.4); Monocytes # (auto) 1.01 K/uL (0.11-0.59); Monocytes % (auto) 9.3 %; Neutrophils # (auto) 8.17 K/uL (1.4-6.5); Neutrophils % (auto) 75.5 %; Platelet Count 178 K/uL (130-400); RDW Coefficient of Variation 13.9 % (11.5-14.5); RDW Standard Deviation 46.6 fL (36.4-46.3); White Blood Count 10.83 K/uL (4.8-10.8)
[2020-09-08 07:26] LABS: BUN Creatinine Ratio 13.2 (10-20); Calcium 7.8 mg/dl (8.5-10.1); Creatinine Clr Calc Pharmacy 46.4 ml/min; Est GFR (African American) 52.4; Est GFR (Non-African American) 45.2; Potassium 3.9 mmol/L (3.5-5.1)
[2020-09-08] MEDS: TERAZOSIN HCL 5 MG CAP PO SCH (08:22)
[2020-09-08] MEDS: DOCUSATE SODIUM/SENNA 50/8.6MG TAB PO SCH (08:22)
[2020-09-08] MEDS: PRAVASTATIN SOD 40 MG TAB PO SCH (08:22)
[2020-09-08] MEDS: dilTIAZem HCL 180 MG CAPCR PO SCH (08:23)
[2020-09-08] MEDS: FINASTERIDE 5 MG TAB PO SCH (08:23)
[2020-09-08] MEDS: POLYETHYLENE (MIRALAX) 17 GM PACK PO SCH (08:23)
--- NOTE | 2020-09-08 08:33 | Urology Progress Note ---
Date of Service September 08, 2020 Assessment & Plan (1) Kidney stone on left side: (2) ARABELLA (acute kidney injury): 75 year-old male patient, with multiple comorbidities, admitted with left flank pain and ARABELLA secondary to obstructing 14 mm left UPJ stone. -Patient status post cystoscopy, left stent placement with Dr. Gannon on 09/06/20. -Plan of care reviewed with Dr. Gannon. -Labs reviewed, white count and creatinine improving. -Discussed options for stone management with patient including inpatient procedure versus outpatient management. -Discussed URS-LL versus outpatient ESWL. -Patient prefers treatment of stone today given persistent left flank pain and elevated creatinine. -Plan to keep NPO. -Will proceed with OR for cystoscopy, left retrograde pyelogram, left ureteroscopy, laser lithotripsy, stone basketing, left stent exchange and possible ureteral dilation depending on findings. Risks and benefits to be reviewed with patient by Dr. Gannon. OR notified. EKG in chart. Patient currently covered preoperatively with routine IV Ceftriaxone. ATTENDING NOTE: Independently evaluated and assessed patient. Agree with note. Risks and benefits discussed at length for procedure. These include bleeding, infection, injury to surrounding tissues or organs, and risks associated with anesthesia. Patient states understanding and agrees to proceed. Will sign consent and schedule. Plan for cystoscopy and left ureteroscopy with laser lithotripsy and stent exchange. Admission and Anticipated Discharge Date Admission Date: September 06, 2020 Subjective POD #2 cystoscopy, left retrograde pyelogram, aspiration of urine, and left stent placement. Patient feeling well overall. Does have on-going stent discomfort, mostly to left flank area. Reports some urinary frequency/urgency. Denies hematuria or dysuria. States overnight he did have episode of chills, max temp 37.7 C. Temperature this morning 36.4. Denies nausea or vomiting. Has been ambulating without dizziness/lightheadedness. Chart review: Temperature max 37.7 C in the past 24 hours. Most recent temperature 36.4 C. Wbc 10.83 (previously 15.88) Hgb 13.5 Creatinine 1.50 (previously 1.85). Preliminary urine culture pin-point growth, re-incubating. Patient currently on IV Ceftriaxone. Denies additional urologic concerns today. Review of Systems Constitutional: as per Subjective / HPI Respiratory: no cough and no dyspnea Cardiovascular: no chest pain and no edema Gastrointestinal: no nausea and no vomiting Genitourinary: + as per Subjective / HPI Musculoskeletal: as per Subjective / HPI Neurologic: as per Subjective / HPI Physical Exam Constitutional: well developed and well nourished; no acute distress and not ill appearing Respiratory: normal respiratory effort and able to speak in complete sentences; no respiratory distress and no audible wheezes Cardiovascular: Extremities: no calf tenderness and no edema Gastrointestinal (Abdomen): Inspection/Auscultation: abdomen normal to inspection; abdomen not distended Percussion/Palpation: abdomen soft; abdomen nontender and no guarding Psychiatric: Orientation: alert, oriented x 3 and cooperative Affect: euthymic affect Genitourinary: no CVA tenderness Results & Data ([facility]) Vital Signs (Past 12 Hours) Vital Signs Temp Pulse Resp BP Pulse Ox 09/08/20 07:04 36.4 C L 66 18 136/72 93 09/08/20 04:35 37.6 C H 80 09/07/20 23:27 37.7 C H 79 20 129/65 90 09/07/20 20:30 36.9 C 68 19 116/73 92 PG Care Time/CCT Total # of Minutes Spent Total Time Spent with Patient: Total time spent is greater than 50% in coordination of care (as documented) at patient's floor/unit and/or counseling patient: Coding Level of Care Code 88543 Subseq Hosp Care Lvl 2 Diagnoses Kidney stone on left side N20.0 ARABELLA (acute kidney injury) N17.9
[2020-09-08] MEDS: cefTRIAXone SODIUM 2,000 MG in DEXTROSE 5% 50 ML IV SCH (11:41)
[2020-09-08] MEDS ORDERED: ATROPINE SULFATE 0.1 MG/ML 10ML SYR IV PRN (15:26)
[2020-09-08] MEDS ORDERED: PROMETHAZINE HCL 12.5 MG in SODIUM CHLORIDE 0.9% 50 ML IV PRN (15:26)
[2020-09-08] MEDS ORDERED: ONDANSETRON INJ 2 MG/ML 2 ML VIAL IV PRN (15:26)
[2020-09-08] MEDS ORDERED: fentaNYL citrate 100 MCG/2 ML VIAL IV PRN (15:26)
[2020-09-08] MEDS ORDERED: HYDROmorphone INJ 2 MG/ML SYR/VIAL IV PRN (15:26)
[2020-09-08] MEDS ORDERED: ePHEDrine sulfate 50 MG/ML AMP IV PRN (15:26)
[2020-09-08] MEDS ORDERED: ONDANSETRON INJ 2 MG/ML 2 ML VIAL IV ONE (15:27)
--- NOTE | 2020-09-08 15:30 | Anesthesiology Consultation ---
Date of Service September 08, 2020 Assessment & Plan ASA ASA3 Proposed Anesthesia Anesthesia Type: General Risk / Benefits Reviewed With: PT / POA / Parent / Guardian, Accepts Plan and Informed Consent Obtained History Surgery Operation Date: 09/06/20 13:40 Proposed Procedures p Cystoscopy(Left) - Raymond Gannon DO s Ureteral Stent Insertion/Removal - Raymond Gannon DO Operation Date: 09/08/20 14:30 Proposed Procedures p Cystoscopy, Left Ureteroscopy, Laser Lithotripsy, Basket Stone Extraction, Stent Exchange - Raymond Gannon DO Height/Weight Height: 5 ft 8 in Weight: 87.2 kg Allergies Allergy/AdvReac Type Severity Reaction Status Date / Time amlodipine Allergy Unknown FACIAL Verified 09/06/20 10:27 DISCOMFORT/SWELLING atorvastatin Allergy Unknown MUSCLE Verified 09/06/20 10:27 TIGHTENING Medications Home Medications Medication Instructions Recorded Confirmed Last Taken aspirin 81 mg tablet,delayed 81 mg PO DAILY tab 05/19/19 09/06/20 09/06/20 release sildenafil 50 mg tablet 50 mg PO DAILY PRN #6 tab 12/26/19 09/06/20 Unknown valsartan 320 1 tab PO DAILY #90 tab 01/17/20 09/06/20 09/06/20 mg-hydrochlorothiazide 12.5 mg tablet diltiazem HCl 360 mg capsule,24 360 mg PO DAILY #90 cap 08/20/20 09/06/2005/19 hr,extended release finasteride 5 mg tablet 5 mg PO DAILY #90 tab 08/20/20 09/06/20 09/06/20 pravastatin 80 mg tablet 80 mg PO DAILY #90 tab 08/20/20 09/06/20 09/06/20 terazosin 5 mg capsule 5 mg PO DAILY #90 cap 08/20/20 09/06/20 09/06/20 ciprofloxacin HCl 500 mg PO BID #10 tab 09/07/20 Unknown docusate sodium 100 mg PO BID #60 cap 09/07/20 Unknown oxycodone-acetaminophen [Percocet] 1 - 2 tab PO Q6H PRN #20 tab 09/07/20 Unknown polyethylene glycol 3350 [Miralax] 17 g PO DAILY #119 g 09/07/20 Unknown sennosides [senna] 8.6 mg PO DAILY #30 cap 09/07/20 Unknown Active Medications Generic Name Dose Route Start Last Admin Trade Name Hoang PRN Reason Stop Dose Admin Acetaminophen 650 mg 09/06/20 13:55 09/06/20 17:17 Acetaminophen 325 Mg Tab PO 10/06/20 13:54 650 mg Q4H PRN Administration pain/fever Diatrizoate Meglumine 20 ml 09/06/20 15:26 09/06/20 15:31 Diatrizoate Meglumine 30% 100ml Vial INSTIL 09/10/20 15:25 20 ml UD PRN Administration Radiology Use Diltiazem HCl 360 mg 09/07/20 09:00 09/08/20 08:23 Diltiazem Hcl 180 Mg Capcr PO 10/07/20 08:59 360 mg DAILY OLEG Administration Finasteride 5 mg 09/07/20 09:00 09/08/20 08:23 Finasteride 5 Mg Tab PO 10/07/20 08:59 5 mg DAILY OLEG Administration Ceftriaxone Sodium 2,000 mg/ 70 mls @ 100 mls/hr 09/07/20 12:00 09/08/20 12:31 Dextrose IV 09/16/20 11:59 Infused Q24H OLEG Infusion Protocol Parenteral Electrolytes 1,000 mls @ 70 mls/hr 09/06/20 13:55 09/08/20 14:12 Normosol-R IV 10/06/20 13:54 0 mls/hr .[id number] OLEG Infusion Morphine Sulfate 4 mg 09/06/20 13:55 09/07/20 17:17 Morphine Sulfate 4 Mg/Ml 1 Ml Carp\Vial IV 09/20/20 13:54 4 mg Q4H PRN Administration Pain Ondansetron HCl 4 mg 09/06/20 13:55 09/06/20 17:20 Ondansetron Inj 2 Mg/Ml 2 Ml Vial IV 10/06/20 13:54 4 mg Q4H PRN Administration Nausea Oxycodone/Acetaminophen 2 tab 09/07/20 11:15 09/08/20 02:31 Oxycodone/Acetaminophen 5mg/325mg Tab PO 09/21/20 11:14 2 tab Q4H PRN Administration pain scale 8-10 Oxycodone/Acetaminophen 1 tab 09/07/20 11:15 09/07/20 15:24 Oxycodone/Acetaminophen 5mg/325mg Tab PO 09/21/20 11:14 1 tab Q4H PRN Administration Pain scale 4-7 Polyethylene Glycol 17 gm 09/07/20 17:15 09/08/20 08:23 Polyethylene (Miralax) 17 Gm Pack PO 10/07/20 17:14 Not Given DAILY OLEG Pravastatin Sodium 80 mg 09/07/20 09:00 09/08/20 08:22 Pravastatin Sod 40 Mg Tab PO 10/07/20 08:59 80 mg DAILY OLEG Administration Senna/Docusate Sodium 1 tab 09/07/20 17:15 09/08/20 08:22 Docusate Sodium/Senna 50/8.6mg Tab PO 10/07/20 17:14 1 tab QAM OLEG Administration Terazosin HCl 5 mg 09/07/20 09:00 09/08/20 08:22 Terazosin Hcl 5 Mg Cap PO 10/07/20 08:59 5 mg DAILY OLEG Administration NPO Date Last Intake of Fluids: 09/07/20 Time Last Intake of Fluids: 17:30 Date Last Intake of Solids: 09/07/20 Time Last Intake of Solids: 17:30 Past Medical History Medical History Aortic stenosis, supravalvular Benign prostate hyperplasia Carotid bruit Chronic kidney disease, stage 3 Depression Diverticulosis of colon Elevated PSA Grief reaction Hepatitis C antibody test negative 07/01/2020 Hyperlipidemia Internal hemorrhoids Male erectile disorder of organic origin Mitral regurgitation Nephrolithiasis Pre-diabetes Tinea versicolor Tubular adenoma of colon Exercise / Class Metabolic Activity II 4-5 Yardwork/Stairs/Walk up hill Past Family History Family History Mother Hypertension Heart disease Denies family history of Prostate cancer Colorectal cancer Colonic polyp Past Surgical History Surgical History History of lithotripsy Past Anesthesia History No Hx of Anesthesia Complications and No Family Hx of Anesthesia Complications History of PONV No Hx of PONV and No Hx of Motion Sickness Social History Smoking Status: Never smoker Do You Dip or Chew Tobacco: No Hx Alcohol Use: No Hx Substance Use: No Review of Systems denies fever/cough/ colds/ chest pain/ SOB/ DEVIN denies DEVIN Physical Exam Vital Signs Last Vital Signs Temp 37.3 C 09/08/20 14:15 Pulse 62 09/08/20 14:15 Resp 18 09/08/20 14:15 BP 143/78 H 09/08/20 14:15 Pulse Ox 93 09/08/20 14:15 ENMT Mouth: no TMJ abnormality and no dentition abnormality Thyromental Distance: > or= 3.5 Finger Breadths Mallampati Class: II Neck neck extension not limited Respiratory normal respiratory effort; no respiratory distress Auscultation: lungs clear to auscultation bilaterally Cardiovascular Rate/Rhythm: regular rate and regular rhythm Neurologic moves all extremities Psychiatric Orientation: alert and oriented x 3 Testing Laboratory Results 09/08/20 06:17 09/08/20 06:17 Urine Color Yellow 09/06/20 11:07 Urine Appearance Cloudy (Clear) A 09/06/20 11:07 Urine pH 6.0 (4.5-7.5) 09/06/20 11:07 Ur Specific [place] 1.026 (1.000-1.030) 09/06/20 11:07 Urine Protein Negative (Negative) 09/06/20 11:07 Urine Glucose (UA) Negative (Negative) 09/06/20 11:07 Urine Ketones Negative (Negative) 09/06/20 11:07 Urine Nitrite Positive (Negative) A 09/06/20 11:07 Ur Leukocyte Esterase 3+ (Negative) H 09/06/20 11:07 Urine WBC (Auto) >30 /hpf (0-5) H 09/06/20 11:07 Urine RBC (Auto) 5-10 /hpf (0-4) H 09/06/20 11:07 U Hyaline Cast (Auto) 0 /lpf (0-5) 09/06/20 11:07 U Epithel Cells (Auto) 20-30 /lpf (0-5) H 09/06/20 11:07 Urine Bacteria (Auto) 4+ (Negative) H 09/06/20 11:07 09/06/20 15:23 Urine Culture - Preliminary Urine,Indwelling Cath Staphylococcus species Staphylococcus species#2 09/06/20 11:07 Urine Culture - Preliminary Urine,Clean Catch Staphylococcus species Staphylococcus species#2
[2020-09-08] MEDS ORDERED: fentaNYL citrate 100 MCG/2 ML VIAL ONE (15:49)
[2020-09-08] MEDS ORDERED: MIDAZOLAM HCL 1 MG/ML 2ML VIAL ONE (16:24)
[2020-09-08] MEDS ORDERED: ONDANSETRON INJ 2 MG/ML 2 ML VIAL ONE (16:45)
[2020-09-08] MEDS ORDERED: DEXAMETHASONE SOD INJ 4 MG/ML VIAL ONE (16:45)
[2020-09-08] MEDS ORDERED: DIATRIZOATE MEGLUMINE 30% 100ML VIAL INSTIL ONE (16:49)
--- NOTE | 2020-09-08 16:58 | Operative Report ---
PG Post Operative Report Pre & Post Diagnosis Operation Date: 09/08/20 14:30 <No data on this case meets the specified criteria> Pre-Op Diagnosis: LEFT KIDNEY STONE Post-Op Diagnosis: LEFT KIDNEY STONE I identified the patient and participated in the time-out.: Yes Procedure Operation Date: 09/08/20 14:30 <No data on this case meets the specified criteria> Cystoscopy with left ureteroscopy, laser lithotripsy, stone basket extraction, retrograde pyelogram, stent exchange. Surgeon Raymond Gannon, II, DO Power Regulator None Estimated Blood Loss 1 Findings Consistent with Post-Op Diagnosis Stone destroyed to dust and small fragments and larger fragments removed. Specimens Stone Fragments Drains 6 Fr Multilength Anesthesia Type General Complications none Disposition Disposition: Recovery Room Indications Patient with bothersome stones. Risks and benefits discussed at length. Description of Procedure Patient was consented and brought back to the operating room. Patient was placed under anesthesia in the supine position and moved to the dorsal lithotomy position. Patient was prepped and draped in the regular sterile fashion. A time out was completed identifying the correct patient and procedure. A 30degree Cystoscope was placed into the bladder and the entire bladder was e xamined. The UO's were identified. The stent was grasped and partially removed. A wire was then placed. A ureteral access sheath and second safety wire was placed. The flexible ureteroscope was taken into the ureter. The entire ureter and renal pelvis were examined. The stones were identified. A laser fiber was selected and the stones were pulverized to dust and small fragments. Larger fragments were grasped and removed and sent for analysis. The entire area was once again examined. No residual large fragments or areas of concern were noted. The scope was slowly removed with the wire left in place. Contrast was placed through the scope for a pyelogram to assist in stent placement. The entire ureter was examined as the scope was slowly removed. No obstructions or other areas of concern were noted. With the wire in place, a 6 Fr Double J stent was placed. It was confirmed with fluoroscopy. With the stent in place, the bladder was emptied. The scope was removed. The patient was cleaned, aroused from anesthesia, and transferred to the pacu in stable condition having tolerated the procedure well with no complications. I was present and participated in all aspects of the procedure. The patient will be monitored in the PACU until transferred. I attest to the content of the Intraoperative Record and any orders documented therein. Any exceptions are noted below.
--- NOTE | 2020-09-08 17:18 | Fluoroscopy Report ---
INTRAOPERATIVE RADIOGRAPHS CLINICAL HISTORY: Left-sided laser lithotripsy. Ureteral stent placement. Fluoroscopy time: 33 seconds. FINDINGS: 3 spot fluoroscopic views of the left abdomen are correlated with abdominal CT dated 020. Initial image shows a lithotripsy device projecting over the left ureteropelvic junction. There is moderate hydronephrosis. The final 2 images show the proximal and distal ends of the left ureteral stent in appropriate position. IMPRESSION: Intraoperative images from a left sided ureteral stent placement procedure as above. Electronically signed by: Vargas Frances M.D. 09/08/2020 5:17 PM
--- NOTE | 2020-09-08 17:59 | Anesthesiology Progress Note ---
Date of Service September 08, 2020 Anesthesia Post Procedure Vital Signs Vital Signs: Temp Pulse Pulse Resp BP Pulse Ox 09/08/20 17:45 36.9 C 60 20 130/74 95 09/08/20 17:40 58 L 18 141/78 H 96 09/08/20 17:30 57 L 22 133/69 98 09/08/20 17:20 67 20 133/58 L 98 09/08/20 17:10 36.9 C 55 L 20 109/57 L 97 09/08/20 14:15 37.3 C 62 18 143/78 H 93 09/08/20 07:04 36.4 C L 66 18 136/72 93 09/08/20 04:35 37.6 C H 80 09/07/20 23:27 37.7 C H 79 20 129/65 90 09/07/20 20:30 36.9 C 68 19 116/73 92 Pain Intensity Left Abdomen: Pain Intensity: 2 Transfer of Care Handoff Completed per policy Notes Mental Status: alert / awake / arousable and participated in evaluation Patient Amnestic to Procedure: Yes Nausea / Vomiting: adequately controlled Pain: adequately controlled Airway Patency, RR, SpO2: stable & adequate BP & HR: stable & adequate Hydration State: stable & adequate Anesthetic Complications: no major complications apparent and Pt Satisfied with anesthetic care
--- NOTE | 2020-09-08 19:09 | Discharge Summary ---
Date of Service September 08, 2020 Admission HPI Per Admitting Provider 75yo M w/ hx of kidney stones and BPH who presents with a kidney stone. Pain began last night at approx 3am. It was a constant, 7/10, stabbing pain in the left flank with nausea. No improvement overnight and came to the ED for pain management. CT a/p in the ED showed left-sided, 14 mm stone with hydronephrosis and perinephric stranding. In the ED, he received morphine and ketorolac which improved his pain. Principal Diagnosis Kidney stones Discharge Exam Constitutional WD/WN, vitals as above Respiratory normal respiratory effort, lungs clear to auscultation Cardiovascular Rate/Rhythm: regular rate and regular rhythm Heart Sounds: + murmur (systolic 3/6) Gastrointestinal (Abdomen) normal bowel sounds, soft, nontender, no hepatosplenomegaly Musculoskeletal no cyanosis or clubbing, extremities motor strength 5/5 Skin no rashes, warm and dry Neurologic moves all extremities and awake Psychiatric A+Ox3, euthymic affect Discharge Data Allergies Allergy/AdvReac Type Severity Reaction Status Date / Time amlodipine Allergy Unknown FACIAL Verified 09/12/20 13:52 DISCOMFORT/SWELLING atorvastatin Allergy Unknown MUSCLE Verified 09/12/20 13:52 TIGHTENING Consultations 09/06/20 12:49 ED Decision to Admit Stat 09/06/20 13:55 Consult Urology Routine Procedures Performed Operation Date: 09/06/20 13:40 Actual Procedures p Ureteral Stent Insertion LEFT, Cystoscopy(Left) - Raymond Gannon DO Operation Date: 09/08/20 14:30 Actual Procedures p Cystoscopy, Left Ureteroscopy, Laser Lithotripsy, Basket Stone Extraction, Left Stent Exchange(Left) - Raymond Gannon DO Ordered Studies 09/06/20 10:14 CT abd pelvis wo con Stat 09/06/20 13:53 FL retrograde includes kub Routine 09/08/20 14:30 FL retrograde includes kub Routine Hospital Course (1) Kidney stone: CT a/p in the ED showed left-sided, 14 mm stone with hydronephrosis and perinephric stranding. - Consulted urology-now status post left double-J ureteral stent on 09/06 - returned to the OR 09/08 for cysto with lithotripsy, basket stone extraction and stent exchange - Continue home alpha-rosalie -Given ceftriaxone for UTI; Urine growing MSSA -Will cover for five days of abx per urology with cipro and cephalexin - Pain control-discontinued Toradol given worsening renal function, will discharge home with percoset. -Renal function improved to baseline 09/08. PVR checked 09/07 and was zero (2) ARABELLA (acute kidney injury): Resolved - creatinine 1.5 which is patient baseline Avoid NSAIDs for pain control (3) Acute UTI: Urinalysis abnormal, urine culture growing MSSA. Ceftriaxone inpatient, cipro and cephalexin for home as above (4) Benign prostate hyperplasia: No post void residual on check - Continue finasteride & terazosin (5) Chronic kidney disease, stage 3: Baseline Cr ~1.4 - 1.5. -Renally dose medications Avoid nephrotoxins-discontinued Toradol -Resume valsartan/HCT for home (6) Hypertension: Blood pressures are slightly hypertensive, no symptoms - Continue home diltiazem - resume valsartan/HCTZ for home (7) Hyperlipidemia: - Continue pravastatin (8) Pre-diabetes: A1c was 5.6% in 07/2020. BSGs stable on morning labs (9) Aortic stenosis, supravalvular: Mild aortic stenosis on recent echocardiogram Follows as an outpatient (10) DVT prophylaxis: SCDs - Low DVT risk per admission calculator & holding heparin for recent procedure Total Time Total Time Spent Total Time Spent (In Minutes): greater than 30 minutes Discharge Plan Discharge Items Patient Disposition: Home - Self-Care Reason For Visit: KIDNEY STONE Discharge Diagnosis: Left sided ureterolithiasis, Ureteral stent placement, Acute kidney injury Prominent lymph node by appendix Condition on Discharge: Fair Activity: As commented below Lifting: Gradually increase as tolerated Bathing: No limitations Exercise/Sports: Gradually increase as tolerated Driving/Machine Use: do not drive while taking narcotics Non-emergency contact: Primary Care Provider and Urologist Call non-emergency contact if: you have any medication questions, your symptoms worsen, your pain is not controlled and your pain is worsening Follow-up/Referrals: Wilfrido Block MD [Primary Care Provider] - 09/12/20 2:00 pm (Please follow-up within 1 week after discharge) Raymond Gannon DO [Physician] - 09/19/20 9:00 am (Please follow-up within 1 week after discharge for stent removal ) Diet: Heart Healthy Addtl Attending Provider Instructions: Please continue on the antibiotics for 5 more days starting today. You can take Percocet as needed for pain but should try to control your pain with just acetaminophen if possible. There is also acetaminophen in the Percocet so be sure you are not taking more than 3,000 mg total of acetaminophen in a 24 hour period or you will risk injury to your liver. Avoid NSAIDs such as ibuprofen or naproxen (Aleve). Drink plenty of fluids and stay on a good bowel regimen to prevent constipation. Incidentally, you were found to have a mildly prominent lymph node next to your appendix on the CT scan. Please have Dr. Block follow up on this with a repeat CT scan in 3-4 weeks to see if it is enlarging. He may recommend other follow up as well. Pending Studies at Discharge: Yes Stand-Alone Forms: My [facility], Opioid Pain Management Medications and DC Order Prescriptions: New oxycodone-acetaminophen [Percocet] 5-325 mg Tablet 1 - 2 tab PO Q6H PRN (Reason: severe pain) Qty: 20 RF: 0 ciprofloxacin HCl 500 mg tablet 500 mg PO BID Qty: 10 RF: 0 docusate sodium 100 mg capsule 100 mg PO BID Qty: 60 RF: 0 senna 8.6 mg capsule 8.6 mg PO DAILY Qty: 30 RF: 0 polyethylene glycol 3350 [Miralax] 17 gram/dose powder 17 g PO DAILY Qty: 119 RF: 0 Continued valsartan-hydrochlorothiazide 320-12.5 mg tablet 1 tab PO DAILY Qty: 90 RF: 3 finasteride 5 mg tablet 5 mg PO DAILY Qty: 90 RF: 3 pravastatin 80 mg tablet 80 mg PO DAILY Qty: 90 RF: 3 terazosin 5 mg capsule 5 mg PO DAILY Qty: 90 RF: 3 diltiazem HCl 360 mg capsule,extended release 24 hr 360 mg PO DAILY Qty: 90 RF: 3 sildenafil 50 mg tablet 50 mg PO DAILY PRN (Reason: sexual activity) Qty: 6 RF: 11 aspirin 81 mg tablet,delayed release (DR/EC) 81 mg PO DAILY RF: 0 Discharge Orders: Discharge Order (Routine); Ordered 09/09/20 Ordered By: Ragini Faulkner/Other Patient Handouts: Having a Ureteral Stent Admission Data Admit Date/Time: 09/06/20 12:53 Attending Provider: Rogelio Esquivel Admit Provider: Luis Jones Primary Care Provider: Wilfrido Block Other Providers: Luis Jones ; Moose Loving Other Interventions: Discharge Summary Assessment (RN) Last Done: 09/09/20 09:55 Supervising Physician Co-Signing Physician Notes Patient discussed with Ragini MAGDALENO on day of discharge. I agree with the discharge summary. I have reviewed the chart including labs, imaging and plans for discharge. patient doing much better after treatment for ureteral stone with retrieval - Ureteral stone: 14mm, treated with stent, basket retrieval will send home on Keflex and Cipro x 5 days, no signs of active UTI pain control with oral narcotics follow up with urology Coding Level of Care Code D/C Day Management >30 mins Diagnoses Kidney stone N20.0 ARABELLA (acute kidney injury) N17.9 Acute UTI N39.0 Benign prostate hyperplasia N40.0 Chronic kidney disease, stage 3 N18.3 Hypertension I10 Hyperlipidemia E78.5 Pre-diabetes R73.03 Aortic stenosis, supravalvular Q25.3 DVT prophylaxis Z29.9
--- NOTE | 2020-09-08 19:49 | Hospitalist Progress Note ---
Date of Service September 08, 2020 Assessment & Plan (1) Kidney stone: CT a/p in the ED showed left-sided, 14 mm stone with hydronephrosis and perinephric stranding. - Consulted urology-now status post left double-J ureteral stent on 09/06 - returned to the OR 09/08 for cysto with lithotripsy, basket stone extraction and stent exchange - Continue home alpha-rosalie -Continue ceftriaxone for UTI; Urine growing two species of straph - patient also grew two species of MSSA in July. Will cover for five days of abx per urology with cipro and cephalexin - Pain control-discontinue Toradol given worsening renal function, will discharge home with percoset. Cautioned patient to wait until tomorrow if possible to take any to allow anesthesia to wear off more fully. -Renal function improved to baseline today. PVR checked yesterday and was zero Post op mild hypoxia, dropping to 89% without O2. Will keep overnight for supplemental oxygen/monitoring. Likely dc first thing am. (2) ARABELLA (acute kidney injury): Resolved - creatinine 1.5 which is patient baseline (3) Acute UTI: Urinalysis abnormal, urine culture growing two species of staph, patient also grew two species of MSSA in July. Ceftriaxone inpatient, cipro and cephalexin for home as above (4) Benign prostate hyperplasia: No post void residual on check - Continue finasteride & terazosin (5) Chronic kidney disease, stage 3: Baseline Cr ~1.4 - 1.5. -Renally dose medications Avoid nephrotoxins-discontinued Toradol -Resume valsartan/HCT for home (6) Hypertension: Blood pressures are controlled - Continue home diltiazem - resume valsartan/HCTZ for home (7) Hyperlipidemia: - Continue pravastatin (8) Pre-diabetes: A1c was 5.6% in 07/2020. BSGs stable on morning labs (9) Aortic stenosis, supravalvular: Mild aortic stenosis on recent echocardiogram Follows as an outpatient (10) DVT prophylaxis: SCDs - Low DVT risk per admission calculator & holding heparin for recent procedure Admission and Anticipated Discharge Date Admission Date: September 06, 2020 Subjective Mr. Cannon is post OR for cysto and lithotripsy today. He's quite disappointed to not go home tonight but as we are talking his oxygen saturations are dipping to 89% and I think having him stay for the night would be safer. He is begrudgingly agreeable.He continues to have some burning with urination. ROS Constitutional: no chills, aches, sweats or fever Respiratory: no sob,cough, sputum, or wheezing Cardiac: no chest pain, palpitations, edema, orthopnea or lightheadedness GI: no abdominal pain, nausea, vomiting, diarrhea or constipation : no dysuria or hesitancy Extremities: no joint pain or weakness Skin: no rash All other systems reviewed and negative Physical Exam Physical Exam: General: no distress Eyes: normal inspection, PERLL Respiratory: chest non tender, clear to auscultation, normal breath sounds, no respiratory distress, no accessory muscle use Cardiac: regular rate and rhythm, no rub or gallop, no murmur, no edema, no jvd GI/: active bowel sounds, no abd pain or tenderness, soft, non distended Extremities: normal range of motion, normal strength, non tender Neuro/Psych: alert and oriented x 3, normal mood and affect Skin: normal color, dry Results & Data Results & Data ([facility]) Vital Signs (Past 12 Hours) Vital Signs Temp Pulse Pulse Resp BP Pulse Ox 09/08/20 19:33 93 09/08/20 18:59 36.9 C 57 L 16 142/73 H 91 09/08/20 18:37 37 C 55 L 16 148/76 H 93 09/08/20 17:57 37.4 C 55 L 16 149/79 H 96 09/08/20 17:45 36.9 C 60 20 130/74 95 09/08/20 17:40 58 L 18 141/78 H 96 09/08/20 17:30 57 L 22 133/69 98 09/08/20 17:20 67 20 133/58 L 98 09/08/20 17:10 36.9 C 55 L 20 109/57 L 97 09/08/20 14:15 37.3 C 62 18 143/78 H 93 PG Care Time/CCT Total # of Minutes Spent Total Time Spent with Patient: Total time spent is greater than 50% in coordination of care (as documented) at patient's floor/unit and/or counseling patient: Coding Level of Care Code 99088 Subseq Hosp Care Lvl 3 Diagnoses Kidney stone N20.0 ARABELLA (acute kidney injury) N17.9 Acute UTI N39.0 Benign prostate hyperplasia N40.0 Chronic kidney disease, stage 3 N18.3 Hypertension I10 Hyperlipidemia E78.5 Pre-diabetes R73.03 Aortic stenosis, supravalvular Q25.3 DVT prophylaxis Z29.9
[2020-09-08] MEDS: oxyCODONE/ACETAMINOPHEN 5mg/325mg TAB PO PRN (22:43)
[2020-09-09] MEDS ORDERED: CIPROFLOXACIN 500 MG TAB PO STA (08:58)
[2020-09-09] MEDS ORDERED: cephALEXin 250 MG CAP PO ONE (08:58)
[2020-09-09] MEDS: dilTIAZem HCL 180 MG CAPCR PO SCH (09:09)
[2020-09-09] MEDS: TERAZOSIN HCL 5 MG CAP PO SCH (09:10)
[2020-09-09] MEDS: FINASTERIDE 5 MG TAB PO SCH (09:11)
[2020-09-09] MEDS: NORMOSOL-R 1,000 ML IV SCH (09:12)
[2020-09-09] MEDS: PRAVASTATIN SOD 40 MG TAB PO SCH (09:12)
[2020-09-09] MEDS: DOCUSATE SODIUM/SENNA 50/8.6MG TAB PO SCH (09:13)
[2020-09-09] MEDS: POLYETHYLENE (MIRALAX) 17 GM PACK PO SCH (09:13)
--- NOTE | 2020-09-09 09:55 | Urology Progress Note ---
Date of Service September 09, 2020 Assessment & Plan (1) Kidney stone on left side: (2) ARABELLA (acute kidney injury): 75 year-old male patient, with multiple comorbidities, admitted with left flank pain and ARABELLA secondary to obstructing 14 mm left UPJ stone. -Patient status post cystoscopy, left stent placement with Dr. Gannon on 09/06/20. -Now POD #1 cystoscopy with left ureteroscopy, laser lithotripsy, stone basket extraction, retrograde pyelogram, left stent exchange. -Patient clinically feeling well, eager to go home. -Remains afebrile. -Preliminary urine culture staphylococcus species x2, await final. -Recommend home with at least 5-7 days antibiotic therapy and pain control. -Plan for outpatient follow-up with urology service for hospital follow-up and stent removal. -Expected clinical course reviewed with patient, all questions answered. -Anticipated discharge today. Thank you for allowing us to participate in the acute care of Mr. Cannon. Please contact us with additional questions, concerns or changes in patient status. Admission and Anticipated Discharge Date Admission Date: September 06, 2020 Subjective POD #1 cystoscopy with left ureteroscopy, laser lithotripsy, stone basket extraction, retrograde pyelogram, left stent exchange. Patient clinically feeling well. Denies severe flank or abdominal pain. Does have some left flank discomfort, mostly with urination. Denies dysuria or hematuria. Mild urinary frequency/urgency. Denies fevers or chills. Denies nausea or vomiting. Has been ambulating without dizziness/lightheadedness. Barbara review: Afebrile Labs reviewed from 09/08 - Wbc 10.83 Hgb 13.5 Creatinine 1.50 Preliminary urine culture staphylococcus species x2, currently on IV Ceftriaxone. Denies additional urologic concerns today. Review of Systems Constitutional: as per Subjective / HPI; no fever and no chills Gastrointestinal: as per Subjective / HPI; no nausea and no vomiting Genitourinary: + as per Subjective / HPI Physical Exam Constitutional: well developed and well nourished; no acute distress and not ill appearing Respiratory: normal respiratory effort and able to speak in complete sentences; no respiratory distress and no audible wheezes Gastrointestinal (Abdomen): Inspection/Auscultation: abdomen normal to inspection; abdomen not distended Percussion/Palpation: abdomen soft; abdomen nontender and no guarding Psychiatric: Orientation: alert, oriented x 3 and cooperative Affect: euthymic affect Genitourinary: no CVA tenderness Results & Data ([facility]) Vital Signs (Past 12 Hours) Vital Signs Temp Pulse Pulse Resp BP BP Pulse Ox 09/09/20 09:07 64 163/82 H 09/09/20 07:28 36.6 C 59 L 16 164/76 H 96 09/09/20 03:17 36.4 C L 62 16 141/58 H 93 09/08/20 22:29 36.7 C 55 L 16 155/70 H 96 PG Care Time/CCT Total # of Minutes Spent Total Time Spent with Patient: Total time spent is greater than 50% in coordination of care (as documented) at patient's floor/unit and/or counseling patient: Coding Level of Care Code 13028 Subseq Hosp Care Lvl 2 Diagnoses Kidney stone on left side N20.0 ARABELLA (acute kidney injury) N17.9
[2020-09-13 02:46] LABS: Component 2 DNR; Source KIDNEY
== END 2020-09-09 10:19 | disposition home or self-care (01) | DRG 661 ==
LOC: ED 09:48 → 3W 12:53 → SUATTDRO 12:53 → 3W 13:33 → 3E 09-08 22:08